=== PATIENT | male | born 1945 | race Caucasian/White ===

== ENCOUNTER 2025-04-12 01:45 | Inpatient (IN) | payer MEDICARE, SELFPAY ==
[2025-04-12] VITALS (26 sets, daily range): BP systolic 107–175; BP diastolic 70–103; PULSE 48–67; RESP 10–28; TEMP 35.6–37.1; O2SAT 95–100
--- NOTE | 2025-04-12 | ECHO_ITS ---
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 Staff Referring Physician: Nba Hodge Senior Lead Project Manager: Mar Moulton Attending Provider: Sameer Chaudhry MD Contrast/Agitated Saline Contrast/Ag. Saline: Definity Amount: 2.00 ml Administered By: Mar Moulton Existing IV Access: Yes IV Access Condition: patent with no signs of infiltration Summary 1. Overall poor quality echocardiogram. 2. Overall preserved biventricular systolic function. Left Ventricle The left ventricle is normal in size and systolic function. There are poor acoustic windows to fully assess for new wall motion abnormalities. Right Ventricle The right ventricle is normal in size and systolic function. Left Atria The left atrium is normal size. Right Atria The right atrium is normal size. Atrial Septum The atrial septum is not well visualized. Aortic Valve The aortic valve is sclerotic. There is no aortic stenosis. There is no aortic regurgitation. Pulmonic Valve The pulmonic valve is not visualized. There is mild pulmonic valve regurgitation. Mitral Valve There is no mitral stenosis. There is no mitral regurgitation. Tricuspid Valve The tricuspid valve is not well visualized. Pericardium/Pleural Pericardium is normal in appearance with no evidence for significant pericardial effusion. Inferior Vena Cava Inferior vena cava is not well visualized. Aorta The aortic root at the level of the sinus of Valsalva measures 3.6 cm in diameter. Left Ventricular Outflow Tract Name Value Normal LVOT 2D LVOT Diameter 2.2 cm LVOT Doppler LVOT Peak Velocity 82 cm/s LVOT Peak Gradient 2 mmHg LVOT Mean Gradient 1 mmHg LVOT VTI 18 cm LVOT VTI/AV VTI Ratio 0.6 LVOT Stroke Volume 69 ml LVOT CO 1.8 l/min LVOT CI 0.8 l/min/m2 Pulmonic Valve Name Value Normal PV Doppler PV Peak Velocity 85 cm/s PV Peak Gradient 3 mmHg Tricuspid Valve Name Value Normal TV Annular TDI TV Lateral Mai s' Velocity 9.4 cm/s >=9.5 Aortic Valve Name Value Normal AV Doppler AV Peak Velocity 151 cm/s AV Peak Gradient 6 mmHg AV Mean Gradient 4 mmHg AV VTI 32 cm AV Area (Cont Eq VTI) 2.1 cm2 >=3.0 AV Area (Cont Eq Rogers) 2.1 cm2 AV DI (Rogers) 0.54 AV Regurgitation 2D LVOT Area 3.8 cm2 Ventricles Name Value Normal LV Dimensions 2D/MM LVOT Diameter 2.2 cm LV Fractional Shortening/Ejection Fraction 2D/MM LV Diastolic Volume (4C MOD) 115 ml LV EF (4C MOD) 61 % LV Diastolic Length (4C) 9.0 cm LV Systolic Length (4C) 7.2 cm LV Stroke Volume (4C MOD) 71 ml Atria Name Value Normal LA Dimensions LA Volume (4C A-L) 41 ml RA Dimensions RA Systolic Major [place] Length (4C) 3.6 cm 2.1-2.7 RA Area (4C) 9.2 cm2 <=18.0 Report Signatures
[2025-04-12] MEDS: MORPHINE SULFATE (*CRX) 2 MG/ML INJ IV PUSH (02:05)
[2025-04-12] MEDS: ATORVASTATIN 40 MG TABLET 80 MG PO ×2 (02:06→20:39)
--- NOTE | 2025-04-12 02:06 | PC.NURSE ---
01:44 Patient arrival, STEMI team called, MD at bedside. 324mg aspirin given orally via EMS. 01:46 Patient placed in gown and EKG set up. 01:48 EKG completed with MD at bedside. 01:49 FELICIA Groin and right wrist shaved. Second IV placed in right AC. Monitor pads placed on chest. 01:51 5000 unit heparin given via IV. 180 mg Brilinta given orally. 01:55 80mg Lipitor given orally. 02:00 2mg Morphine given via IV for pain.
[2025-04-12 02:08] LABS: Hematocrit 48.7 % (42.0-52.0); Hemoglobin 16.1 g/dL (14.0-18.0); Immature Granulocyte Percent A 0.4 % (0-0.5); Lymphocytes Absolute Auto 2.47 K/mm3 (0.9-3.2); Mean Corpuscular HGB Conc 33.1 g/dl (32-36); Mean Corpuscular Hemoglobin 31.0 pg (26-34); Mean Corpuscular Volume 93.8 fl (80-100); Nucleated Red Blood Cells Absolute Auto 0.000 K/mm3 (0.0-0.012); Nucleated Red Blood Cells Perc 0.0 % (0.0-0.2); Platelet Count Result 167 k/mm3 (150-375); Red Blood Count 5.19 M/mm3 (4.6-6.20); White Blood Count 7.2 K/mm3 (4.5-10.0)
--- OUTSIDE RECORDS SUMMARY | 2025-04-12 02:09 | XMS_ITS | Continuity of Care Document ---
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 daily - Active Glucovance 2.5 mg-500 mg Tab take as directed - Active imipramine 25 mg Tab two p.o. daily - Acti ve fosinopril 20 mg Tab one p.o. daily - Acti ve Prilosec 20 mg Cap one p.o. daily - Active Vytorin 10-40 10 mg-40 mg Tab one p.o. daily - Active Wellbutrin SR 200 mg Tab 1 po q d - Active Nasonex 50 mcg/Actuation Snyder - Active Procedures Procedure Date Offic/outpt E&m Estab Mod-hi 2 09 Offic/outpt E&m Estab Mod-hi 4 09 Offic/outpt E&m Estab Mod-hi 4 09 Offic/outpt E&m Estab Mod-hi 4 09 Offic Cons New/estab Mod-hi 80 09 Noninvas Oximetry-o2 Sat; 1 De 09 Advance Directives Directive Yes / No Effective Date File Name Resuscitation Not Answered N/A N/A Life Support Not Answered N/A N/A Intubation Not Answered N/A N/A Antibiotics Not Answered N/A N/A IV Fluid Support Not Answered N/A N/A Tube Feed Not Answered N/A N/A Other Directive N/A N/A WARNING:The information contained in this section is historical and is provided for information only and does not constitute a legal document or any assurance that the information is still accurate. Please verify the information with the niño of the legal document before using it for clinical purposes. Encounters Encounter Description Practice Location Reason(s) For Visit Diagnoses Date Provider Providers Copied on Encounter Offic/outpt E&m Estab Mod-hi 2 [facility], [address], [id number] , [place] tel:[phone] [facility] Obstructive Sleep Apnea (chief complaint)Pe riodic Limb Movement Disorder (chief complaint) sleep apnea nec/nossleep related movemt dis 9 Horace Miller. [address] [place], [address], [place]. [phone] Referring Provider: Canelo OJEDA, [address], [place], [address]. 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 [address] [place], [address], [place]. [phone] Referring Provider: Canelo OJEDA, [address], [place], [address]. tel:[phone] Offic/outpt E&m Estab Mod-mo 4 [facility], [address], [id number] , [place] tel:[phone] [facility] Sleep problems (chief complaint) sleep apnea nec/nosrenal failure nos Amadeo- 1-200 9 Horace Miller. [address] [place], [address], [place]. tel:[phone] Referring Provider: Canelo OJEDA, [address], [place], [address]. tel:[phone] Offic/outpt E&m Estab Mod-hi 4 [facility], [address], [id number] , tel:[phone] [facility] Sleep problems (chief complaint) sleep apnea nec/nossleep related movemt disobesity nos Dec- 0-200 9 Horace Miller. [address] [place], [address], [place]. tel:[phone] Referring Provider: Canelo OJEDA, [address], [place], [address]. tel:[phone] Offic Cons New/estab Mod-hi 80 [facility], [address], [id number] , [place] tel:[phone] [facility] hypersomni w sleep apneaInadequate Sleep HygieneHypertension allergic rhinitis nos 2-200 9 Horace Miller. [address] [place], [address], [place]. [phone] Referring Provider: Canelo OJEDA, [address], [place], [address]. tel:[phone] Family History Family Member Type Diagnosis Age At Onset No Information Payers Payer name Insurance type Covered libertarian ID Authortashiaa hector(s) [facility] CI [id number] Social History Type Description Quantity Date Captured Comments Alcohol Use Details Unknown Caffeine Use Details Unknown Tobacco Use Status No Information Smoking Status No Information Sex Male Vital Signs Date / Time: Height Weight BMI Pulse Rate Blood Pressure Temperature Respiratory Rate Body Surface Area Head Circumference Head Circ. Percentile Wt./Tanvir. Percentile BMI percentile Pulse Ox Inhaled Ox 10:46 AM 96.600 kg (213.00 lbs) 72 /min 132/86 mm[Hg] 97.90 F 97 % Chief Complaint And Reason For Visit From encounter dated '09/07/2009 11:00'. Obstructive Sleep Apnea (chief complaint). Description: Mr. Menchaca continues to use CPAP nightly. He finds both the pressure and the mask comfortable. He keeps CPAP on throughout the duration of hismajor sleep episode. Recently he went on a 3-week vacation. During that time he did not use CPAP. He felt that he was more sleepy during the day when not using CPAP. Additionally he reported his sleep less well consolidated.He denies drowsy driving or difficulty maintaining vigilance to task. his [place] Sleepiness Scale today is scored at 8. Periodic Limb Movement Disorder (chief complaint). Description: He finds that his limb movements are now under better control. He uses Mirapex 0.25-mg on a p.r.n. basis. He finds he needs this only twice weekly. During those times he does use the Mirapex, he finds it successful.His typical bedtime is 10 p.m. Sleep latency is within 10-15 minutes. He wakens once or twice nightly to urinate. Sleep latency is within 5 minutes. He wakens daily between 8 a.m. and 8:30 a.m. Reason For Referral Reason For Referral No Information History Of Present Illness Encounter Date Complaint History Of Prese nt Illness No Information Functional Status Date Functional Assessmen t No Information Instructions Date Instruction Additional Infor mation No Information Assessments Type Assessment Date No Information Patient Care Teams Name Effective Dates (start - stop) Status Members No Information
--- OUTSIDE RECORDS SUMMARY | 2025-04-12 02:09 | XMS_ITS | Clinical Summary ---
Author Organization [facility] Address [address] [place] [address] Care Team Providers Care Validation Scientist Name Role Phone Franny Martinez MD Primary Care Provider + Allergies Active Allergy Reactions Criticality Noted Date Comments Iodinated Contrast Media Other (see comment) Prednisone Other (see comment) 05/11/2024 Prednisone & Diphenhydramine Other (see comment) 10/03/2023 Sulfa Antibiotics Hives,Itching,Other (see comment) High 06/15/2010 Medications acetaminophen (TYLENOL) 500 MG tablet Take 1 tablet (500 mg total) by mouth every 4 (four) hours as needed for Pain. Active meclizine (ANTIVERT) 25 MG tablet Take 1 tablet (25 mg total) by mouth daily as needed. Active Cholecalciferol (VITAMIN D) 50 MCG (2000 UT) Cap Take 2,000 Units by mouth daily. Active allopurinol (ZYLOPRIM) 100 MG tabletIndications: Idiopathic chronic gout without tophus, unspecified site Take 1 tablet (100 mg total) by mouth daily. 90 tablet 3 04/23/20 24 025 Active MULTIPLE VITAMIN OR Take by mouth. Activ e aspirin EC (ECOTRIN) 81 MG tablet Take 1 tablet (81 mg total) by mouth daily. Active JARDIANCE 25 MG tabletIndications: Type 2 diabetes mellitus with stage 4 chronic kidney disease, with long-term current use of insulin ([facility]/HCC HHS/HCC) Take 1 tablet (25 mg total) by mouth daily. 90 tablet 3 09/14/20 24 025 Active ONETOUCH ULTRA test stripIndications:T ype 2 diabetes mellitus with stage 4 chronic kidney disease, with long-term current use of insulin (CMS/HCC HHS/HCC) 1 strip by Other route 4 (four) times daily. 200 strip 5 10/23/19 25 Active glyBURIDE (DIABETA) 5 MG tabletIndications: Type 2 diabetes mellitus with stage 4 chronic kidney disease, with long-term current use of insulin (CMS/HCC HHS/HCC) TAKE 1 TABLET BY MOUTH TWICE DAILY BEFORE LUNCH AND DINNER 180 tablet 10/27/19 25 Active esomeprazole (NEXIUM) 20 MG capsuleIndications :Gastroesophageal reflux disease without esophagitis TAKE 1 CAPSULE(20 MG) BY MOUTH EVERY MORNING BEFORE BREAKFAST 90 capsule 1 11/24/19 25 Active lisinopril (PRINIVIL) 5 MG tablet Take 1 tablet (5 mg total) by mouth daily. 12/16/19 25 Active B-D ULTRAFINE III SHORT PEN 31G X 8 MM MiscIndications:Ty pe 2 diabetes mellitus with stage 4 chronic kidney disease, with long-term current use of insulin (CMS/HCC HHS/HCC) 4 [place] by Other route daily. 200 each 1 01/08/20 25 Active glucagon (GLUCAGON EMERGENCY) 1 MG injectionIndicatio ns:Type 2 diabetes mellitus with stage 4 chronic kidney disease, with long-term current use of insulin (CMS/HCC HHS/HCC) Use for hypoglycemia PRN 1 kit 01/08/20 25 Active Continuous Glucose [employer] (FREESTYLE ALEENA 14 DAY READER) DeviceIndications: Type 2 diabetes mellitus with stage 4 chronic kidney disease, with long-term current use of insulin (CMS/HCC HHS/HCC) 1 each by Does not apply route every 14 (fourteen) days. E11.9 on insulin 1 each 02/24/20 25 Active Continuous Glucose Sensor (FREESTYLE ALEENA 14 DAY SENSOR) MiscIndications:Ty pe 2 diabetes mellitus with stage 4 chronic kidney disease, with long-term current use of insulin (CMS/HCC HHS/HCC) 1 each by Does not apply route every 14 (fourteen) days. 6 each 3 02/24/20 25 Active insulin aspart (NOVOLOG FLEXPEN) 100 UNIT/ML injection (PEN)Indications:T ype 2 diabetes mellitus with stage 4 chronic kidney disease, with long-term current use of insulin (CMS/HCC HHS/HCC) 6 units before all meals. Maximum units per day: 18 units. 30 mL 02/25/20 25 Active insulin glargine (LANTUS SOLOSTAR) 100 UNIT/ML injection (PEN)Indications:T ype 2 diabetes mellitus with stage 4 chronic kidney disease, with long-term current use of insulin ([facility]) Inject 10 Units into skin nightly at bedtime 15 mL 1 02/25/20 25 Active atorvastatin (LIPITOR) 40 MG tabletIndications: Mixed hyperlipidemia Take 1 tablet (40 mg total) by mouth nightly. 90 tablet 3 04/07/20 24 025 donepezil (ARICEPT) 10 MG TabIndications:Alz heimer's dementia without behavioral disturbance, psychotic disturbance, mood disturbance, or anxiety, unspecified dementia severity, unspecified timing of dementia onset ([facility]) Take 1 tablet (10 mg total) by mouth nightly at bedtime. 90 tablet 04/07/20 24 025 hydrALAZINE (APRESOLINE) 10 MG tabletIndications: Essential hypertension Take 1 tablet (10 mg total) by mouth 4 (four) times daily. 360 tablet 3 04/07/20 24 025 memantine (NAMENDA) 10 MG tabletIndications: Alzheimer's dementia without behavioral disturbance, psychotic disturbance, mood disturbance, or anxiety, unspecified dementia severity, unspecified timing of dementia onset ([facility]) Take 1 tablet (10 mg total) by mouth 2 (two) times daily. 180 tablet 3 04/07/20 24 025 metoprolol succinate ER (TOPROL-XL) 25 MG 24 hr tabletIndications: Essential hypertension Take 0.5 tablets (12.5 mg total) by mouth daily. 45 tablet 3 04/07/20 24 025 potassium citrate CR (UROCIT-K) 10 MEQ (1080 MG) tabletIndications: Renal stone Take 1 tablet (10 mEq total) by mouth 2 (two) times daily. 180 tablet 3 04/07/20 24 025 Active Problems Problem Noted Date Diagnosed Date Subclinical hypothyroidism 04/23/2024 Overview (07/09/2024): TSH elevated in April 2024 but T4 remains normal. 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 RBBB 04/15/2024 Overview (04/15/2024): Seen on baseline EKG in 2019. Essential hypertension 04/07/2024 Overview (01/07/2025): Takes metoprolol, hydralazine. Dr. Castillo started lisinopril. Assessment & Plan (01/07/2025 11:23 AM CDT): Chronic. Controlled. Continue metoprolol, hydralazine, lisinopril. Assessment & Plan (07/09/2024 11:17 AM CDT): Controlled. Stable. Continue metoprolol and hydralazine. Assessment & Plan (04/23/2024 1:21 PM CDT): Controlled today. Continue metoprolol and hydralazine. Assessment & Plan (04/07/2024 12:39 PM CDT): Controlled. Use of hydralazine suggests underlying cardiomyopathy but await records to confirm this history. Ordered CMP. Vascular dementia 04/07/2024 Overview (01/07/2025): Takes memantine and donepezil. POA paperwork has now been completed in [place]. Diagnosed by neurology after scans. MRI showed old ischemic strokes in left frontal lobe and bilateral cerebellar lobes. Takes plavix and asa. His is now helping him with his medications to ensure he is taking them appropriately. Assessment & Plan (01/07/2025 11:24 AM CDT): POA activated now. Continue memantine and donepezil. His is managing his medications as it stands now. Assessment & Plan (10/09/2024 10:48 AM RN RECOVERY): Consider activating POA in the future. Continue memantine and donepezil. Assessment & Plan (07/09/2024 11:17 AM CDT): Stable. No changes to memory since he was last seen. Continue memantine and donepezil. Assessment & Plan (04/23/2024 1:22 PM CDT): Will monitor for progression. Will continue memantine and donepezil for now. Question the benefit of these given vascular etiology for his dementia. Assessment & Plan (04/07/2024 2:19 PM CDT): Await neurology records. Will continue memantine and donepezil. Possibly reflects vascular dementia. PAD (peripheral artery disease) 04/07/2024 Overview (04/20/2024): Saw Dr. Menchaca with comprehensive integrated care. Records indicate Tibioperoneal/runoff atherectomy + [employer]ILDC[employer] ATTENDANT with excellent angiographic results on 01/17/23. Assessment & Plan (04/07/2024 12:38 PM CDT): Await records. Stage 4 chronic kidney disease ([facility]/HCC [facility]/HCC) 06/03/2023 Overview (10/09/2024): He has now seen nephrology, Dr. Castillo. No major adjustments were done. Assessment & Plan (10/09/2024 10:47 AM RN RECOVERY): Will check BMP to confirm stability. He is seeing nephrology again in November. Assessment & Plan (07/09/2024 11:15 AM CDT): Recommend nephrology referral. New referral entered. Assessment & Plan (04/07/2024 12:52 PM CDT): Await BMP to confirm renal function. Nephrology referral. Chronic gout 05/31/2023 Overview (04/07/2024): Takes allopurinol 200 mg daily. Pt has not had a flare in several years. Doesn't recall where it affected him. Assessment & Plan (04/23/2024 1:21 PM CDT): Uric acid is very low. Will reduce allopurinol to 100 mg daily and monitor for recurrence of symptoms. Assessment & Plan (04/07/2024 12:39 PM CDT): Will check uric acid levels to determine whether dose is adequate or whether it can be reduced. Continue allopurinol for now. Gastroesophageal reflux disease 05/31/2023 Overview (04/07/2024): Takes nexium. Assessment & Plan (10/09/2024 10:47 AM RN RECOVERY): Chronic. Symptoms well-controlled. Continue Nexium. Mixed hyperlipidemia 07/05/2021 Overview (04/07/2024): Takes atorvastatin 40 mg nightly. Assessment & Plan (10/09/2024 10:47 AM RN RECOVERY): CMP and lipid panel were updated in March. Will plan to repeat this again next visit. Assessment & Plan (04/07/2024 12:39 PM CDT): Ordered CMP and lipid panel to evaluate efficacy. Continue atorvastatin. 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 They felt it was secondary polycythemia due to CKD and possibly FRANCIS. Assessment & Plan (04/07/2024 2:19 PM CDT): Will refer to hematology and acquire the records of his history of polycythemia. He denies any polycythemia vera. Obstructive sleep apnea syndrome 04/08/2020 Overview (10/09/2024): Not using the CPAP Type 2 diabetes mellitus wit h chronic kidney disease, with long-term current use of insulin ([facility]) 04/08/2020 Overview (02/11/2025): Takes jardiance, glyburide. Takes Lantus 20 units daily. Reduced at last visit due to AM hypoglycemia. Improved but still down to 70s fasting. Taking humalog 6 units with dinner meal. Post prandial blood sugars 170s. Does not take metformin due to CKD IV. They discontinued and got rid of aleena machine because it was constantly reporting elevated readings. Assessment & Plan (02/11/2025 10:22 AM CDT): A1c controlled but persistent hypoglycemia in AM. Reduce lantus to 10 units and adjust humalog to 4 units with meals only. Request she drop off blood sugar log in 2 weeks for further adjustment. May benefit from aleena in the future. Assessment & Plan (01/27/2025 2:28 PM CDT): A1c now controlled 7.7%. Concerning hypoglycemia in the a.m. and hyperglycemia postprandial. Recommend reducing Lantus to 20 units daily and starting predinner meal 6 units of NovoLog. Request another 2-week follow-up at which time we may extend mealtime insulin to lunch meal as well depending on his response. We also may reinitiate aleena system since he is in better shape now to monitor blood sugars closely. Assessment & Plan (01/07/2025 11:24 AM CDT): A1c 8.1%. Improved from 13%. Not quite yet at goal. Will adjust Lantus since he is having a.m. hypoglycemia. Reduce Lantus to 30 units once daily instead of 20 units twice daily. Next visit will initiate Humalog 10 units with meals or depending on blood sugars which she will provide at a 2-week follow-up visit. Sent in Humalog so that she can have it ready at her visit. Request Premeal blood sugars at that time. Also sent optometry referral. Foot exam today. Provided emergency glucagon kit. Assessment & Plan (10/09/2024 10:47 AM RN RECOVERY): A1c has been inaccurate due to his CKD and polycythemia. Will need to make adjustments based on blood sugars themselves. Increase Lantus to 20 units daily. Request an update if he has any low blood sugars or if he remains persistent elevated. We agreed that we would not be overly aggressive with his insulin regimen due to age and comorbidities. Assessment & Plan (07/09/2024 11:17 AM CDT): Request updated blood sugar log for the next week and will make arrangements for aleena system. Unfortunately his A1c is not accurate due to his polycythemia and adjustments need to be made based off blood sugar readings. Assessment & Plan (04/23/2024 1:21 PM CDT): A1c is very controlled. Suspect that his polycythemia is affecting his numbers. We will need to monitor his blood sugars more closely due to the inaccuracy of his A1c at this time. He is running low in the morning. Recommend he take his glyburide with his lunch and dinner instead of taking it while fasting which is probably contributing to lower blood sugars. His daytime glucose suggest that his A1c is inaccurate and he may need mealtime insulin. Will consider aleena use in the future. He will follow-up in June as scheduled. Assessment & Plan (04/07/2024 12:51 PM CDT): Suspect not controlled. Await A1c. Continue Jardiance and glyburide. Recommend reducing Lantus to 10 units daily and having his assist with management so that he is consistent with dosing. She will start to help him with tracking blood sugars and return in 2 weeks to review these together. Encounters Date Type Department Care Team Description 02/23/2025 Scan [facility] INFO SRVCS Scanned, Doc Med Group 02/23/2025 Telephone [facility] Family Medicine - [place] [address] [place] [address] Franny Martinez MD Blood Sugar Reporting 02/11/2025 9:50 AM CDT Office Visit [address] [place] [address] Franny Martinez MD Diabetes (Patient presents for a 2 week follow up on diabetes) 02/11/2025 Scan HEALTH INFO SRVCS Scanned, Doc Med Group 02/11/2025 Travel 01/27/2025 11:10 AM CDT Office Visit [address] [place] [address] Franny Martinez MD Diabetes (2 week follow up); ER F/U ([place], [place]) 01/16/2025 ; pneumonia, covid-19) 01/27/2025 Travel from Last 3 Months Immunizations Immunization Administration Dates Next Due Fluzone High Dose (IIV, triv alent, 0.5mL) 07/01/2024 Influenza (Generic) 04/23/2019, 8,08/23/2017,2015,07/24/2015,07/27/2013,12/16/2012,1 09/24/2006 Influenza Adult (Generic) 06/17/2020 Pneumococcal (Pneumovax 23) 12/16/2012 Family History Medical History Relation Comments CHF Father Colon Cancer Mother Relation Status Comments Father Mother Son Alive Social History Tobacco Use Types Packs/Day Years Used Date Smoking Tobacco: Never Passive Smoke Exposure: Never Smokeless Tobacco: Never Tobacco Cessation:Counseling Given: No Alcohol Use Standard Drinks/Week Comments Not Currently 0 (1 standard drink = 0.6 oz pur e alcohol) PHQ-2 Answer Date Recorded Patient Health Questionnaire-2 Score 0 10/09/2024 Sex and Gender Information Value Date Recorded Sex Assigned at Male 02/11/2025 9:30 AM CDT Legal Sex Male 1:32 PM CDT Gender Identity Male 02/11/2025 9:30 AM CDT Sexual Orientation Straight 02/11/2025 9: 30 AM CDT Last Filed Vital Signs Vital Sign Reading Time Taken Comments Blood Pressure 122/72 02/11/2025 9:30 AM CDT Pulse 50 02/11/2025 9:30 AM CDT Temperature 36.7 C (98 F) 02/11/2025 9:30 AM CDT Respiratory Rate 16 02/11/2025 9:30 AM CDT Oxygen Saturation 99% 02/11/2025 9:30 AM CDT Inhaled Oxygen Concentration - - Weight 85.7 kg (189 lb) 02/11/2025 9:30 AM CDT Height 182.9 cm (6') 02/11/2025 9:30 AM CDT Body Mass Index 25.63 02/11/2025 9:30 AM CDT Plan of Treatment Upcoming Encounters Date Type Department Care Team (Late st Contact Info) Description 04/12/2025 9:50 AM CDT Office Visit [facility] Medical Group Family Medicine - [place] [address] [place] [phone] Franny Martinez MD [address] [place], [place] [phone] Health Maintenance Due Date Last Done Comments ASCVD Statin 1945 Kidney Health Evaluation 1945 Diabetes: Retinopathy Eye Exam 1963 Hepatitis C 1963 DTaP, Tdap and Td Vaccines (1 - Tdap) 1964 Zoster Vaccines (1 of 2) 1995 Annual Medicare Wellness Visit 2010 Pneumococcal Vaccine: 50+ Years (2 of 2 - PCV) 12/16/2013 12/16/2012 RSV Immunization or 60+ Years (1 - 1-dose 75+ series) 2020 COVID-19 Vaccine ( - season) 2024 ASCVD LDL 04/07/2025 04/07/2024 Lipid Panel 04/07/2025 04/07/2024 Hemoglobin A1C 07/30/2025 01/27/2025, 12/22, 10/09/2024, Additional history exists PHQ-2 (Physician [place]) Completed 10/09/2024 Meningococcal B Vaccine Aged Out No l onger eligible based on patient's age to complete this topic Meningococcal Vaccine Aged Out No sae andrade eligible based on patient's age to complete this topic RSV Immunizations Under 20 Months Aged Out No longer eligible based on patient's age to complete this topic Procedures Procedure Name Priority Date/Time Associated Diagnosis Comments COLLECT.CAPILLARY (FNGR,HEEL,EAR) Routine 01/27/2025 12:07 PM CDT Type 2 diabetes mellitus with stage 4 chronic kidney disease, with long-term current use of insulin ([facility]) HEMOGLOBIN, GLYCOSYLATED Routine 01/27/2025 Type 2 diabetes mellitus with stage 4 chronic kidney disease, with long-term current use of insulin ([facility]) LIPID PANEL Routine 04/07/2024 10:37 AM CDT Mixed hyperlipidemia from Last 3 Months or Most Recently Relevant to Health Maintenance Results * A1C (BACK OFFICE) (01/27/2025) HGB A1C 7.7 % [address] [place] FINGER,LEFT 01/27/2025 us Franny Martinez MD LABORATORY Final Re sult [id number] [facility] [address] [place] [address], * (ABNORMAL) LIPID PANEL (04/07/2024 10:37 AM CDT) CHOLESTEROL 144 <200 MG/DL 04/07/2024 4:11 PM CDT [facility] TRIG[facility] 132 <150 MG/DL 04/07/2024 4:11 PM CDT [facility] [place] HDL 38(L) >40 MG/DL 04/07/2024 4:11 PM CDT [facility] [place] LDL-C 80 <100 MG/DL 04/07/2024 4:11 PM CDT [facility] [place] VLDL CALCULATION 26 5 - 28 MG/DL 04/07/2024 4:11 PM CDT [facility] CHOL/HDL RATIO 3.8 0.0 - 4.0 04/07/2024 4:11 PM CDT [facility] [place] LDL/HDL 2.1 0.41 - 2.13 04/07/2024 4:11 PM CDT [facility] [place], [place] NON HDL CHOLESTEROL 106 <140 MG/DL 04/07/2024 4:11 PM CDT [facility] [place] 04/07/2024 10:3 7 AM CDT us Franny Martinez MD LABORATORY Final Re sult [facility] [address] [place] [address], [place] [phone] from Last 3 Months or Most Recently Relevant to Health Maintenance Insurance MEDICARE [facility] Care Teams Validation Scientist Relationship Specialty Start Date End Date Franny Martinez MD [address] [place] [id number] PCP - General FAMILY PRACTICE 04/07/24
--- OUTSIDE RECORDS SUMMARY | 2025-04-12 02:09 | XMS_ITS | Encounter Summary ---
Author Organization [facility] Address [address] [place] [address] Care Team Providers Care Banquet Bartender Name Role Phone Franny Martinez MD Primary Care Provider + Encounter Details Date Type Department Care Team (Late Contact Info) Description 07/20/2024 Jumiot Message Enc [facility] [address] [place] [phone] Franny Martinez MD [address] [place] [phone] Blood sugars Social History Tobacco Use Types Packs/Day Years Used Date Smoking Tobacco: Never Passive Smoke Exposure: Never Smokeless Tobacco: Never Alcohol Use Standard Drinks/Week Comments Not Currently 0 (1 standard drink = 0.6 oz pur e alcohol) PHQ-2 Answer Date Recorded Patient Health Questionnaire-2 Score 0 04/07/2024 Sex and Gender Information Value Date Recorded Sex Assigned at Male 02/11/2025 9:30 AM CDT Legal Sex Male 1:32 PM CDT Gender Identity Male 02/11/2025 9:30 AM CDT Sexual Orientation Straight 02/11/2025 9: 30 AM CDT documented as of this encounter Plan of Treatment Upcoming Encounters Date Type Department Care Team (Late Contact Info) Description 04/12/2025 9:50 AM CDT Office Visit [facility] [address] [place] [phone] Franny Martinez MD [address] [place] [address] documented as of this encounter Visit Diagnoses Not on filedocumented in this encounter Care Teams Banquet Bartender Relationship Specialty Start Date End Date Franny Martinez MD [address] [place] [address] PCP - General FAMILY PRACTICE 04/07/24 documented as of this encounter
--- OUTSIDE RECORDS SUMMARY | 2025-04-12 02:09 | XMS_ITS | Patient Health Record ---
Author Organization [facility], Address [address] [place] [address] Care Team Providers Care Run Lead Name Role Phone Shadi PONCE, Mai Ledbetter Primary Care Provider Unav ailable Himanshu Hoff Unavailable [phone] Reason For Referral No Information Medications Medication SIG (Take, Route, Frequency, Duration) Notes Start Date End Date Status atorvastatin 09/25/2013 Active TRAMADOL 09/25/2013 Active Potassium 09/25/2013 Active Nifedical XL (nifedipine) 09/25/2013 Active Allopurinol 100 MG Oral 09/25/2013 Active Atenolol 25 MG Oral 09/25/2013 Acti ve glyBURIDE 5 MG Oral 09/25/2013 Acti ve Problems Problem Type SNOMED Code ICD Code Onset Dates Problem Status W/U Status Risk Notes Problem Sensorineural hearing loss, bilateral (148808547) 389.18-Hearing loss sensorineural bilateral (389.18) 09/25/19 14 Active confirmed Problem Dysfunction of eustachian tube (53822954) 381.81-Eustachian Tube Dysfunction (381.81) 10/05/19 14 Active confirmed Problem Acute infection of pinna (22179454) 380.11-Otitis Externa (380.11) 10/05/19 14 Active confirmed Plan Of Treatment No Information Insurance Providers Payer Name Payer Address Payer Phone Subscriber Number Group Number Insured Name Patient Relationship to Insured Coverage Start Date Coverage End Date Medicare Part B [employer] [address] [place] [phone] [id number] Canelo Menchaca Self - patient is the insured [facility] Claims Division [address] [place] [address] [phone] [id number] Canelo Menchaca Self - patient is the insured Medical (General) History Surgical History Surgery Date(Month/Year) Tonsillectomy
--- OUTSIDE RECORDS SUMMARY | 2025-04-12 02:10 | XMS_ITS | Clinical Summary ---
Author Organization [facility] [address] Address [address] [place] [address] Care Team Providers Care Associate Chemist Name Role Phone Provider, None Primary Care Provider Emmanuel Torres MD Unavailable [phone] Allergies Active Allergy Reactions Criticality Noted Date Comments Iodinated Contrast Media Other (see Comments) 0 10/05/2021 Prednisone Other (see Comments) 05/11/2024 Sulfa Antibiotics Hives,Itching,Other (see Comments) High 06/15/2010 Medications allopurinol (ZYLOPRIM) 100 MG Tablet Take 100 mg by mouth daily. Active glyBURIDE (DIABETA) 5 MG Tablet Take 5 mg by mouth 2 times daily. Active hydrALAZINE 10 MG Tablet Take 20 mg by mouth 2 times daily. Active metoprolol Succinate (TOPROL-XL) 25 MG TABLET SR 24 HR Take 12.5 mg by mouth daily. Active potassium citrate (UROCIT K) 10 MEQ (1080 MG) Tablet Controlled Release Take 10 mEq by mouth 2 times daily. Active meclizine (ANTIVERT) 25 MG Tablet Take 25 mg by mouth daily as needed. Active acetaminophen (TYLENOL) 500 MG Tablet Take 500 mg by mouth every 4 hours as needed. Active aspirin EC 81 MG Tablet Delayed Response Take 81 mg by mouth daily. Active Multiple Vitamin (MULTIVITAMIN PO) Take by mouth. Activ e Lactobacillus (PROBIOTIC ACIDOPHILUS PO) Take by mouth. Active memantine (NAMENDA) 10 MG Tablet 10/25/19 25 Active esomeprazole (NexIUM) 20 MG CAPSULE DELAYED RELEASE Take 20 mg by mouth. 11/24/19 25 Active Lantus SoloStar 100 UNIT/ML Solution Pen-injector Inject 20 Units into skin nightly at bedtime 11/09/19 25 Active Continuous Glucose Track Sweeper (FreeStyle Elvin 14 Day [place]) Device 1 Each by Does not apply route. 02/24/20 25 Active Continuous Glucose Sensor (FreeStyle Elvin 14 Day Sensor) Misc 1 Each by Does not apply route. 02/24/20 25 Active Glucagon, rDNA, (Glucagon Emergency) 1 MG Kit Use for hypoglycemia PRN 01/08/20 25 Active OneTouch Ultra Strip USE TO CHECK BLOOD SUGAR FOUR TIMES DAILY Active lisinopril (PRINIVIL, ZESTRIL) 5 MG Tablet Take 5 mg by mouth daily. Active atorvastatin (LIPITOR) 40 MG Tablet 06/17/20 19 Active NovoLOG FlexPen 100 UNIT/ML Solution Pen-injector 6 units before all meals. Maximum units per day: 18 units. 02/25/20 25 Active BD Pen Needle Short Ultrafine 31G X 8 MM Misc USE 4 NEEDLES DAILY Active atorvastatin (LIPITOR) 20 MG Tablet Take 20 mg by mouth 2 times daily. 025 Discontinu ed(Med List Clean Up) donepezil (ARICEPT) 10 MG Tablet Take 10 mg by mouth. 04/07/20 24 025 Jardiance 25 MG Tablet Take 25 mg by mouth daily. 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 Polycythemia, secondary (Primary Dx) 03/18/2025 Travel from Last 3 Months Immunizations Immunization Administration Dates Next Due Influenza, high-dose, trivalent, PF 07/01/2024 Social History Tobacco Use Types Packs/Day Years Used Date Smoking Tobacco: Never Smokeless Tobacco: Never Tobacco Cessation:Counseling Given: Not Answered Alcohol Use Standard Drinks/Week Comments Never 0 (1 standard drink = 0.6 oz pur e alcohol) Sex and Gender Information Value Date Recorded Sex Assigned at Not on file 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 Gender Identity Not on file Sexual Orientation Not on file Last Filed Vital Signs Vital Sign Reading Time Taken Comments Blood Pressure 130/78 03/18/2025 10:33 AM CDT Pulse 55 03/18/2025 10:33 AM CDT Temperature 36.6 C (97.9 F) 03/18/2025 10:33 AM CDT Respiratory Rate 16 03/18/2025 10:33 AM CDT Oxygen Saturation 97% 03/18/2025 10:33 AM CDT Inhaled Oxygen Concentration - - Weight 84.6 kg (186 lb 9.6 oz) 03/18/2025 10:33 AM CDT Height 180.3 cm (5' 11) 03/18/2025 10:33 AM CDT Body Mass Index 26.03 03/18/2025 10:33 AM CDT Plan of Treatment Upcoming Encounters Date Type Department Care Team (Late st Contact Info) Description 09/09/2025 10:30 AM 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 Office Visit [facility] [address] [phone] Emmanuel Holley MD [address] [place] [phone] Health Maintenance Due Date Last Done Comments Hepatitis C Virus (HCV) Screening 1945 TdaP Immunization 1945 Zoster Immunization (1 of 2) 1995 Respiratory Syncytial Virus (RSV) Immunization (Adult) (1 - 1-dose 75+ series) 2020 SARS-COV-2 Immunization ( - 2023- season) 2024 Influenza Immunization (#1) 2025 10/05/2024, 06/17/2020, 04/23/2019, Additional history exists Pneumococcal Immunization (50+ years) Completed 12/16/2012, 12/16/2012 Hepatitis B Immunization Aged Out No longer eligible based on patient's age to complete this topic Human Papillomavirus (HPV) Immunization Aged Out No longer eligible based on patient's age to complete this topic Meningococcal Immunization (ACWY) Aged Out No longer eligible based on patient's age to complete this topic Rotavirus Immunization Aged Out No lo nger eligible based on patient's age to complete this topic Procedures Procedure Name Priority Date/Time Associated Diagnosis Comments CBC WITH AUTO DIFF OH Routine 03/18/2025 2:06 PM CDT from Last 3 Months Results * (ABNORMAL) CBC WITH AUTO DIFF OH (03/18/2025 2:06 PM CDT) WBC 6.5 4.0 - 10.0 10*3/uL [facility] HGB 16.9 13.7 - 17.5 g/dL [facility] HCT 49.9 40.1 - 51.0 % [facility] PLT 173 163 - 369 10*3/uL [facility] MPV 11.6 9.4 - 12.4 fL [facility] RBC 5.32 4.63 - 6.08 10*6/uL [facility] MCV 94 79 - 95 fL [facility] MCH 31.8 25.6 - 32.2 pg [facility] MCHC 33.9 32.2 - 36.5 g/dL [facility] RDW 17.4(H) 11.6 - 14.4 % [facility] Neutrophils % 67.7(H) 36.0 - 66.0 % [facility] Lymphocytes % 20.1 19.0 - 40.0 % [facility] Monocytes % 10.0 4.1 - 12.1 % [facility] Eosinophils % 1.1 0.0 - 3.5 % [facility] Basophils % 0.5 0.0 - 1.0 % [facility] Absolute Neutrophils 4.4 1.4 - 6.6 10*3/uL [facility] Absolute Lymphocytes 1.3 0.8 - 4.0 10*3/uL [facility] Absolute Monocytes 0.7 0.2 - 1.2 10*3/uL [facility] Absolute Eosinophils 0.1 0.0 - 0.4 10*3/uL [facility] Absolute Basophils 0.0 0.0 - 0.1 10*3/uL [facility] 03/18/2025 2:06 PM CDT us Rabia Nichols APRN, HOME ENERGY RATER LAB SEND OUTS Final Result [facility] [place] [address], [place] [phone] from Last [address] [facility] MEDICARE A[employer] Care Teams Associate Chemist Relationship Specialty Start Date End Date Provider, None [place] PCP - General 11/11/21 Emmanuel Holley MD [address] [place] [address] Consulting Physician Oncology 12/14/24
--- OUTSIDE RECORDS SUMMARY | 2025-04-12 02:10 | XMS_ITS | Patient Health Record ---
Author Organization [facility] Address [address] [place] [address] Care Team Providers Care Full Stack Net Developer Name Role Phone Mai Hsu Primary Care Provider Unavail able Sara Langford Unavailable [phone] Self Referral, Self Referral Unavailable Rhoda vailable Allergies Allergen (clinical drug ingredient) Drug/Non Drug Allergy documented on EMR Reaction Allergy Type Onset Date Status contrast dye (uncoded) Unknown Allergy Active Substance with sulfonamide structure and antibacterial mechanism of action (substance) Sulfa Antibiotics rash Drug Allergy Active Reason For Referral No Information Medications Medication SIG (Take, Route, Frequency, Duration) Notes Start Date End Date Status Potassium Citrate ER 10 MEQ (1080 MG) 1 tablet with meals Orally 2 times daily Active Donepezil HCl 5 MG 1 tablet at bedtime Orally Once a day Active Jardiance 25 MG 1 tablet Orally Once a day Active NexIUM 20 MG 1 capsule Orally Onc e a day Active Clopidogrel Bisulfate 75 MG 1 tablet Orally Once a day for 30 day(s) 12/07/2022 Active Cranberry 300 MG as directed Orally Not-Taking Multivitamin - 1 tablet Orally Once a day Active Allopurinol 100 MG 1 tablet Orally two times daily Active Fiber Adult Gummies 2 GM as directed Orally Active Atorvastatin Calcium 20 MG 1 tablet Orally twice daily Active Probiotic 250 MG as directed Orally Active glyBURIDE 5 MG 1 tablet with breakf ast or the first main meal of the day Orally Once a day Active Aspirin 81 MG 1 tablet Orally Once a day Active hydrALAZINE HCl 25 MG 1 tablet with food Orally 2 times daily Active Lantus 100 UNIT/ML as directed Subcutan eous 30/40 units Active Metoprolol Succinate ER 25 MG 1/2 tab Orally twice daily Active Social History Tobacco Use: Social History Observation Description Date Details (start date - stop date) Never Smoker NA - NA Tobacco Use/Smoking Question Answer Notes Are you a nonsmoker Alcohol Screen Question Answer Notes Did you have a drink containing alcohol in the p ast year? No Points 0 Interpretation Negative Problems Problem Type SNOMED Code ICD Code Onset Dates Problem Status W/U Status Risk Notes Problem 72494098 Type 2 diabetes mellitus with other specified complication (E11.69) Active confirmed Problem 524509194 Atherosclerosis of [place] arteries of extremities with rest pain, right leg (I70.221) Active confirmed Problem 926230942 residential (current) use of insulin (Z79.4) Active confirmed Problem 672062242 Peripheral arterial disease (I73.9) Active confirmed Problem Peripheral artery disease (793415502) Peripheral artery disease (I73.9) Active confirmed Problem Hyperlipidaemia (17729589) HLD (hyperlipidemia) (E78.5) Active confirmed Problem 033447862 PAOD (peripheral arterial occlusive disease) (I77.9) Active confirmed Problem Benign hypertension (56428840) Benign hypertension (I10) Active confirmed Problem Stenosis of right carotid artery (929925907052891) Stenosis of right carotid artery (I65.21) Active confirmed Problem 76751775620258387 Rest pain of b oth lower extremities due to atherosclerosis (I70.223) Active confirmed Plan Of Treatment Pending Test Test Name Order Date BMP, CBC, PT-INR 08/06/2022 BMP, CBC, PT-INR 11/08/2022 BMP, CBC, PT-INR 11/15/2022 Insurance Providers Payer Name Payer Address Payer Phone Subscriber Number Group Number Insured Name Patient Relationship to Insured Coverage Start Date Coverage End Date MEDICARE OF [place] [address] [place] [phone] [id number] Canelo Menchaca Self - patient is the insured [facility] [address] [place] [address] [phone] [id number] Canelo Menchaca Self - patient is the insured Medical (General) History Medical History History ICD Code gout cholesterol blood sugar high blood pressure diabetesheart kidney memory acid reflux minor aches vertigo Surgical History Surgery Date(Month/Year) knee scope hernia repair
--- NOTE | 2025-04-12 02:27 | P.HP_ITS ---
H&P: HPI History of Present Illness Date/Time: 04/12/25 02:27 Chief Complaint: Chest pain Narrative: 79-year-old male with hypertension, type 2 diabetes mellitus, CKD, dyslipidemia, gout, history of stroke, ? Vascular dementia Patient presented to [facility] Emergency Room on 04/12/2025 with complaints of chest pain. EMS EKG on my personal interpretation showed sinus bradycardia, inferior ST elevation with reciprocal ST depression. Cardiac catheterization lab was activated for primary PCI. At the time of evaluation in the labor delivery rn, patient denied ongoing chest pain. As per staff, patient had reported of and on chest pain through the day which got worse in the evening. Due to dementia, patient is unable to provide detailed medical information. Review of Systems Review of Systems: As per HPI, other review of system difficult to obtain due to patient's dementia. At the time of evaluation the labor delivery rn can not, he denied ongoing chest pain. Denies shortness of breath, palpitation, dizziness or syncope. No fever or chills. [facility] Social History Social History Smoking status: Never smoker Do You Feel Safe in your Home?: Yes Lack of Transportation: No Lack of Food: Never True Current Housing: I Have Housing Concerned About Future Housing: No Difficulty Paying Gas/Electric Bills: No Difficulty Paying for Meds: No Currently Unemployed: No Education: Master's Degree or Higher Difficulty w/ Childcare or Family Care: No Living arrangements: with family Gender identity (if verbalized by the patient): Male Meds Home Medications and Allergies Home Medications ?Medication ?Instructions ?Recorded ?Confirmed ?Type acetaminophen 500 mg tablet 1,000 mg PO Q6H PRN 08/17/24 12/21/24 History (Tylenol Extra Strength) allopurinol 100 mg tablet 100 mg PO DAILY 08/17/24 12/21/24 History aspirin 81 mg chewable tablet 81 mg PO DAILY 08/17/24 12/21/24 History atorvastatin 20 mg tablet 20 mg PO BID 08/17/24 12/21/24 History donepezil 10 mg tablet 10 mg PO QHS 08/17/24 12/21/24 History empagliflozin 25 mg tablet 25 mg PO DAILY 08/17/24 12/21/24 History (Jardiance) glyburide 5 mg tablet 5 mg PO BID 08/17/24 12/21/24 History hydralazine 10 mg tablet 20 mg PO BID 08/17/24 12/21/24 History insulin glargine 100 unit/mL (3 See Rx Instructions subcut DAILY 08/17/24 12/21/24 History mL) subcutaneous pen (Lantus Solostar U-100 Insulin) lactobacillus combination no.9 4 4,000 mmu cells PO DAILY 08/17/24 12/21/24 History billion cell capsule (Adult 50 Plus Probiotic) metoprolol succinate 25 mg 12.5 mg PO DAILY 08/17/24 12/21/24 History tablet,extended release 24 hr multivitamin 1 tablet PO DAILY 08/17/24 12/21/24 History potassium citrate 10 mEq (1,080 1,080 mg PO BID 08/17/24 12/21/24 History mg) tablet,extended release lisinopril 5 mg tablet 5 mg PO DAILY #30 tabs 12/15/24 12/15/24 Rx Allergies Allergy/AdvReac Type Severity Reaction Status Date / Time No Known Allergies Allergy Unverified 08/17/24 10:48 Vital Signs Vital Signs - 24 hr 04/12/25 01:49 04/12/25 01:50 04/12/25 01:50 Pulse Rate 49 L 58 L 58 L Respiratory Rate 23 H 19 18 Blood Pressure 167/103 H 167/103 H Pulse Oximetry 97 98 95 Oxygen Delivery Room Air 04/12/25 02:00 04/12/25 02:02 04/12/25 02:12 Pulse Rate 54 L 52 L 61 Respiratory Rate 28 H 27 H 20 Blood Pressure 175/85 H 170/87 H Pulse Oximetry 99 99 98 Oxygen Delivery 04/12/25 02:12 04/12/25 02:16 04/12/25 02:22 Pulse Rate 55 L 55 L 58 L Respiratory Rate 21 H 17 18 Blood Pressure 170/87 H 163/71 H Pulse Oximetry 100 99 98 Oxygen Delivery Exam Narrative: PHYSICAL EXAMINATION: GENERAL: Elderly male, alert, no acute distress MENTAL STATUS: affect appropriate to mood, no agitation EYES: Extraocular movements intact, no pallor EARS: External ears appear normal, hearing grossly normal NOSE: Normal and patent, no discharge MOUTH: Mucous membranes moist, tongue normal NECK: Supple, no JVD CHEST: Good respiratory effort, clear to auscultation HEART: Bradycardia, distant heart sounds ABDOMEN: Soft, nontender NEUROLOGICAL: Alert, speech coherent MUSCULOSKELETAL: No major deformity, no amputation EXTREMITIES: No pedal edema, no clubbing, no cyanosis SKIN: no rash on the exposed area, no cyanosis PSYCHIATRIC: Flat affect, no agitation H&P: Results Labs Labs: Short CBC 04/12/25 Range/Units 02:01 WBC 7.2 (4.5-10.0) K/mm3 Hgb 16.1 (14.0-18.0) g/dL Hct 48.7 (42.0-52.0) % Plt Count 167 (150-375) k/mm3 Assessment and Plan Assessment and plan (1) Essential (primary) hypertension: Code(s): I10 - Essential (primary) hypertension Status: Acute (2) ST elevation LA (STEMI): Code(s): I21.3 - ST elevation (STEMI) myocardial infarction of unspecified site Status: Acute Assessment and Plan: 79-year-old male with hypertension, type 2 diabetes mellitus, dyslipidemia, gout, history of stroke, ? Vascular dementia. Patient brought to the hospital with complaints of chest pain, often on which got worse towards the end of the day. EKG showed inferior ST elevation with reciprocal ST depression. Emergent coronary angiogram showed 100% thrombotic occlusion of RPL branch- infarct related vessel. 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 LV systolic function preserved. Patient underwent primary PCI/GLENYS x1 RPL branch with pentecostalism of RICARDO 3 flow. -admit to ICU -dual antiplatelet therapy with aspirin ticagrelor; high-dose statin. Avoid beta-erlinda for now due to bradycardia. -labs including CBC, CMP, lipid panel, HbA1c, serial troponins -echo with Doppler -may consider relook angiogram of LAD in the future based on clinical course -ICU physician updated
[2025-04-12 02:28] LABS: Alanine Aminotransferase 17 U/L (6-50); Albumin Level 3.8 g/dL (3.5-5.1); Alkaline Phosphatase 79 U/L (38-126); Anion Gap 7 mmol/L (4-12); Aspartate Amino Transferase 24 U/L (17-59); Bilirubin,Total 1.1 mg/dL (0.2-1.3); Blood Urea Nitrogen 22 mg/dL (9-20); Calcium 9.0 mg/dL (8.4-10.2); Carbon Dioxide 26 mmol/L (22-30); Chloride 104 mmol/L (98-107); Cholesterol 118 mg/dL (0-200); Estimated Glomerular Filt Rate 36; Glucose 141 mg/dL (65-110); HDL Direct 29 mg/dL; Potassium 3.7 mmol/L (3.4-5.0); Sodium 137 mmol/L (137-145); Total Protein 6.8 g/dL (6.3-8.2); Triglycerides 121 mg/dL (<150)
--- NOTE | 2025-04-12 02:28 | ED_ITS ---
HPI - Chest Pain General Chief Complaint: Chest Pain Stated Complaint: chest pain Time Seen by Provider: 04/12/25 01:56 History of Present Illness HPI narrative: 79-year-old male with a history of mild Alzheimer's, CKD, diabetes. Patient also has history of CVA. He presents to the emergency department with concerns for STEMI. Patient has been having some chest discomfort throughout the day and at 15 minutes ago had severe chest pain that was crushing in nature and radiating towards his left arm. No history of coronary disease, no history of stents. Does not take any blood thinners aside from baby aspirin. EMS contacted us during transport and related an EKG that appears to have an inferior STEMI. Catheterization lab was activated immediately and I relayed the EKG and spoke to the glass inspector marketing and communications officer Dr. Chaudhry. On arrival to the emergency department patient is complaining of chest pain, diaphoretic and pale appearing. Bradycardic in the 40s to 50s with severe ectopy. No hypoxia. Declines any shortness of breath, nausea, vomiting, back pain, abdominal pain or epigastric discomfort. Never had anything like this happened to him previously. Related Data Home Medications ?Medication ?Instructions ?Recorded ?Confirmed ?Last Taken ?Type acetaminophen 500 mg tablet 1,000 mg PO Q6H PRN pain 08/17/24 04/12/25 Unknown History (Tylenol Extra Strength) allopurinol 100 mg tablet 100 mg PO DAILY 08/17/24 04/12/25 04/11/25 History aspirin 81 mg chewable tablet 81 mg PO DAILY 08/17/24 04/12/25 04/11/25 History atorvastatin 20 mg tablet 20 mg PO HS 08/17/24 04/12/25 04/11/25 History donepezil 10 mg tablet 10 mg PO QHS 08/17/24 04/12/25 04/11/25 History empagliflozin 25 mg tablet 25 mg PO DAILY 08/17/24 04/12/25 04/11/25 History (Jardiance) glyburide 5 mg tablet 5 mg PO BID 08/17/24 04/12/25 04/11/25 History hydralazine 10 mg tablet 20 mg PO BID 08/17/24 04/12/25 04/11/25 History insulin glargine 100 unit/mL (3 10 unit subcut DAILY@0800 08/17/24 04/12/25 04/11/25 History mL) subcutaneous pen (Lantus Solostar U-100 Insulin) lactobacillus combination no.9 4 4,000 mmu cells PO DAILY 08/17/24 04/12/25 04/11/25 History billion cell capsule (Adult 50 Plus Probiotic) metoprolol succinate 25 mg 12.5 mg PO HS 08/17/24 04/12/25 04/11/25 History tablet,extended release 24 hr multivitamin 1 tablet PO DAILY 08/17/24 04/12/25 04/11/25 History potassium citrate 10 mEq (1,080 1,080 mg PO BID 08/17/24 04/12/25 04/11/25 History mg) tablet,extended release insulin aspart U-100 100 unit/mL 6 unit subcut TIDWM 04/12/25 04/12/25 04/11/25 History (3 mL) subcutaneous pen (Novolog FlexPen U-100 Insulin aspart) memantine 10 mg tablet 10 mg PO DAILY 04/12/25 04/12/25 04/11/25 History Allergies Allergy/AdvReac Type Severity Reaction Status Date / Time No Known Allergies Allergy Unverified 08/17/24 10:48 Review of Systems 2 Review of Systems: As reviewed above in [facility] Family History Family History (Updated 04/12/25 @ 04:24 by Liss Hill RN) Mother Colon cancer Father PAD (peripheral artery disease) Other History of blood clots Social History Social History Smoking status: Never smoker Alcohol intake: never Substance use: never Do You Feel Safe in your Home?: Yes Lack of Transportation: No Lack of Food: Never True Current Housing: I Have Housing Concerned About Future Housing: No Difficulty Paying Gas/Electric Bills: No Difficulty Paying for Meds: No Currently Unemployed: No Education: Master's Degree or Higher Difficulty w/ Childcare or Family Care: No Living arrangements: with family Gender identity (if verbalized by the patient): Male Spiritual care concerns: No Exam 2 Narrative: GENERAL: Ill-appearing, diaphoretic and pale HEAD: Normocephalic EYES: Pupils are equal reactive ENT: Nares clear, no rhinorrhea or epistaxis. Mucous membranes moist. NECK: Supple. CHEST: Clear to auscultation, mild tachypnea HEART: Bradycardic rate, regular rhythm. No murmur heard. Warm pulses, bradycardic pulses ABDOMEN: Soft, nontender, no rigidity EXTREMITIES: Normal range of motion. No edema SKIN: Warm, dry, no rash. NEURO: Moving all extremities without any focal deficits. Alert and oriented [x3.] PSYCH: [Normal mood and affect.] Course Vital Signs Vital signs: Vital Signs Pulse Rate 49 L 04/12/25 01:49 Respiratory Rate 23 H 04/12/25 01:49 Blood Pressure 167/103 H 04/12/25 01:49 Pulse Oximetry 97 04/12/25 01:49 Temperature 36.4 C 04/12/25 06:00 Pulse Rate 60 04/12/25 06:00 Respiratory Rate 19 04/12/25 06:00 Blood Pressure 134/73 04/12/25 06:00 Pulse Oximetry 100 04/12/25 06:00 Oxygen Delivery Room Air 04/12/25 04:00 MDM - Chest Pain MDM Narrative Medical decision making narrative: 79-year-old male with a history of mild Alzheimer's, CKD, diabetes. Patient also has history of CVA. He presents to the emergency department with concerns for STEMI. Patient has been having some chest discomfort throughout the day and at 15 minutes ago had severe chest pain that was crushing in nature and radiating towards his left arm. No history of coronary disease, no history of stents. Does not take any blood thinners aside from baby aspirin. EMS contacted us during transport and related an EKG that appears to have an inferior STEMI. Catheterization lab was activated immediately and I relayed the EKG and spoke to the glass inspector marketing and communications officer Dr. Chaudhry. On arrival to the emergency department patient is complaining of chest pain, diaphoretic and pale appearing. Bradycardic in the 40s to 50s with severe ectopy. No hypoxia. Declines any shortness of breath, nausea, vomiting, back pain, abdominal pain or epigastric discomfort. Never had anything like this happened to him previously. Patient was loaded with 5000 units of heparin, 180 mg of Brilinta after discussion with the glass inspector, given 324 mg of aspirin by EMS. Repeat EKG obtained that still shows inferior ST elevations in 2 3 and AVF with reciprocal depressions in V1 and V2. No previous EKGs comparison besides the 1 from EMS. Cardiology was spoken to and catheterization lab was activated. Patient provided morphine and oxygen for analgesia and comfort. Patient remains stable at this time with elevated blood pressures and persistent bradycardia in the 40s to 50s. Awaiting laborer ammunition assembly mobilization for transport upstairs and then ICU admission. I did discuss with the patient's family member including his who arrived to the emergency department regarding the plan of care and current status. Medical Records Data Attestation: I reviewed the patient's medical records. Lab Data Attestation: I reviewed the patient's lab results. 04/12/25 02:01 04/12/25 02:01 Labs: Lab Results 04/12/25 Range/Units 02:01 WBC 7.2 (4.5-10.0) K/mm3 RBC 5.19 (4.6-6.20) M/mm3 Hgb 16.1 (14.0-18.0) g/dL Hct 48.7 (42.0-52.0) % MCV 93.8 (80-100) fl MCH 31.0 (26-34) pg MCHC 33.1 (32-36) g/dl RDW 17.8 H (11.5-14.5) % Plt Count 167 (150-375) k/mm3 MPV 11.0 H (7.4-10.4) fl Immature Gran % (Auto) 0.4 (0-0.5) % Neut % (Auto) 51.2 (45.5-73.1) % Lymph % (Auto) 34.4 (18.3-44.2) % [place] % (Auto) 12.0 H (2.6-8.5) % Eos % (Auto) 1.3 (0-4.4) % Baso % (Auto) 0.7 (0.2-1.2) % Lymph # (Auto) 2.47 (0.9-3.2) K/mm3 [place] # (Auto) 0.9 H (0.1-0.6) K/mm3 Eos # (Auto) 0.1 (0-0.3) K/mm3 Baso # (Auto) 0.1 (0.0-0.1) K/mm3 Abs Immat Gran (auto) 0.03 (0.00-0.031) K/mm3 Absolute Neuts (auto) 3.7 (1.3-6.7) K/mm3 Absolute Nucleated RBC 0.000 (0.0-0.012) K/mm3 Nucleated RBC % 0.0 (0.0-0.2) % PT Pending INR Pending APTT Pending Sodium Pending Potassium Pending Chloride Pending Carbon Dioxide Pending Anion Gap Pending BUN Pending Creatinine Pending Estim Creat Clear Calc Pending Estimated GFR Pending Glucose Pending Calcium Pending Total Bilirubin Pending AST Pending ALT Pending Alkaline Phosphatase Pending Troponin I Pending Total Protein Pending Albumin Pending Triglycerides Pending Cholesterol Pending LDL Cholesterol Direct Pending HDL Direct Pending Nasal MRSA (PCR) Pending ECG Data EKG #1: Attestation: I personally reviewed and interpreted this ECG as follows: ECG completion date: 04/12/25 ECG completion time: 03:55 Prior ECG tracings: not available for review Ischemic changes: acute STEMI Interpretation: Inferior STEMI with ST segment elevations in leads 3 AVF and reciprocal depressions in leads V1 and V2. Considered right-sided RCA lesion. Sinus bradycardia with ectopy. QTC 489, TX interval 244. No previous EKG for comparison. Critical Care Time Critical Care Time Critical Care Time: Yes Total Critical Care Time: 35 Discharge Plan Discharge Clinical Impression: ST elevation CO (STEMI) Patient Disposition: Still a Patient Condition: Serious
[2025-04-12 02:38] LABS: INR 1.1; Prothrombin Time 14.1 Seconds (11.1-14.7)
[2025-04-12 02:39] LABS: Partial Thromboplastin Time 26.5 Seconds (22.3-36.8)
[2025-04-12 02:48] LABS: Troponin I 0.190 ng/mL (0.000-0.034)
[2025-04-12 03:20] LABS: MRSA (PCR) NOT DETECTED (NOT DETECTE)
--- NOTE | 2025-04-12 03:24 | P.PCNCC_ITS ---
Cardiac Cath Procedure Note Date of procedure:: 04/12/25 Performing physician:: Sameer Chaudhry MD Procedure Procedure note:: EMERGENT CARDIAC CATHETERIZATION AND PERCUTANEOUS CORONARY INTERVENTION REPORT DATE OF PROCEDURE: 04/12/2025 INDICATION FOR PROCEDURE: Acute coronary syndrome/inferior ST-elevation myocardial infarction BRIEF CLINICAL HISTORY:79-year-old male with hypertension, type 2 diabetes mellitus, CKD, dyslipidemia, gout, history of stroke, ? Vascular dementia Patient presented to [facility] Emergency Room on 04/12/2025 with complaints of chest pain. EMS EKG on my personal interpretation showed sinus bradycardia, inferior ST elevation with reciprocal ST depression. Cardiac catheterization lab was activated for primary PCI. PROCEDURES PERFORMED: 1. Emergent left heart catheterization- Selective left and right coronary angiogram; left ventriculogram and hemodynamic assessment 2. Percutaneous coronary intervention-balloon angioplasty and stenting of totally occluded RPL branch using a 2.75 x 26 mm Biotronik sirolimus eluting stent with yazidi of RICARDO 3 flow 3. Ultrasound-guided right radial artery access 4. Moderate sedation-CPT code 89415 and beyond MODERATE SEDATION: Midazolam 1 mg; fentanyl 25 mcg. Start time 0243 , Stop time 0316 ; Total [id number] time 33 minutes; Mayelin Vaughn RN was trained observer for moderate sedation. ACCESS SITE: Right radial artery PROCEDURE NOTE: Patient was emergently brought to catheterization lab and prepped and draped in a usual sterile manner. After local anesthesia with lidocaine, right radial artery access was taken with micropuncture needle under ultrasound guidance followed by insertion of a 6 [place] sheath. Selective left and right coronary angiogram was performed using 5 [place] 3.5 diagnostic catheter and JR4 guide catheters respectively. Orthogonal views were taken. After completion of PCI, 5 [place] pigtail catheter was advanced in the LV cavity and was flushed with normal saline. LV pressure measurement was performed. After this, left ventriculogram was performed. The catheter was flushed again, and gradient across the aortic valve was measured on the pullback of the catheter. After completion of procedure, radial band was applied with good hemostasis. Patient tolerated procedure well without any immediate procedure related complications. FINDINGS: LEFT MAIN CORONARY: Medium to large caliber vessel, no significant focal stenosis. LEFT ANTERIOR DESCENDING ARTERY: Lad is a medium caliber vessel with diffuse narrowing in the proximal segment which extends in the the mid-distal segment. The vessel becomes diminutive in the distal segment. Diagonal branch is a medium caliber vessel with narrowing in the proximal segment. 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 LEFT CIRCUMFLEX ARTERY: Medium caliber vessel, gives rise to tortuous medium caliber OM1 branch which gives rise to superior and inferior branches. Superior branch is smaller caliber vessel with about 80-90 % stenosis in the mid segment. RIGHT CORONARY ARTERY: Large caliber, tortuous, dominant vessel. The vessel gives rise to small to medium caliber PDA branch with mild plaque in the proximal segment; and medium caliber RPL branch. RPL branch has 100% thrombotic occlusion in the proximal segment, which is infarct-related vessel. LEFT VENTRICULOGRAM: Hyperdynamic LV systolic function, ejection fraction more than 70%. LVEDP elevated at 27 mmHg. HEMODYNAMIC ASSESSMENT: Opening pressure 125/85 mmHg, closing pressure 140/66 mmHg, LVEDP 27 mmHg; no significant gradient across aortic valve on the pullback of pigtail catheter. INTERVENTION REPORT: Patient had already received aspirin and loading dose of ticagrelor in the ER. Bivalirudin was used for procedural anticoagulation. RCA was selectively engaged using 6 [place] JR4 guide catheter. The total occluded RPL branch was crossed using 0.014 luge wire. Balloon angioplasty was performed using a 2.0 x 10 mm compliant balloon at nominal pressures. This resulted in the yazidi of the flow in the RPL branch. After this, a 2.75 x 26 Biotronik sirolimus eluting stent was deployed at nominal pressures. Postdilatation was performed using the stent balloon. Final angiogram showed good angiographic results with yazidi of RICARDO 3 flow. There was no heidy ographically visible dissection or distal embolization. After completion of PCI, left ventriculogram was performed as described above. Radial band was applied for local hemostasis after completion of the procedure. Patient was chest pain-free at the time of transfer to the ICU. CONCLUSIONS: 1. 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 2. Preserved LV systolic function, LVEF > 70%; LVEDP elevated at 27 mmHg. 3. Primary PCI-PTCA/stenting of totally occluded RPL branch using a 2.75 x 26 mm Biotronik sirolimus eluting stent. PLAN/RECOMMENDATIONS: -admit to ICU -dual antiplatelet therapy with aspirin ticagrelor; high-dose statin. Avoid beta-erlinda for now due to bradycardia. -labs including CBC, CMP, lipid panel, HbA1c, serial troponins -echo with Doppler -may consider relook angiogram of LAD in the future based on clinical course -ICU physician updated This document was completed by using [employer] Direct speech recognition software, therefore, dispatcher refinery variances may occur.
--- NOTE | 2025-04-12 03:47 | ECG_ITS ---
Test Date: 2025-04-12 03:55:43 Measurements Intervals [place] Rate: 64 P: 106 UT: 244 QRS: -79 QRSD: 136 T: 3 QT: 473 QTc: 489 Interpretive Statements sinus rhythm with occasional premature atrial contraction INFERIOR INFARCT, RECENT POSTERIOR INFARCT, RECENT ABNORMAL RHYTHM ECG No previous ECG available for comparison Electronically Signed On 04-12-2025 11:24:38 CDT by Jean Morrison M.D.
[2025-04-12] MEDS: SODIUM CHLORIDE 0.9% IV 1,000 ML 125 ML IV CONT (04:53)
--- NOTE | 2025-04-12 05:35 | ADMGEN ---
This patient, Canelo Menchaca, was admitted to Intensive Care Unit-9 at 0342. Patient/family oriented to hospital policies and general routines including ID bracelet, bed and alarms, visiting hours, pain management, procedures, bathroom and other care routines, personal items, smoking policy, room service/diet, and visiting hours. Information on how to activate the Rapid Response Team has been discussed. Patient/Family are encouraged to report perceived risks to care and to ask questions if they do not understand what they are told or what they should do.
[2025-04-12 07:12] LABS: Troponin I 31.500 ng/mL (0.000-0.034)
[2025-04-12] MEDS: PERFLUTREN LIPID MICROSPHERES 1.5 ML VIAL DILUTED TO 10 ML TOTAL VOLUME IV PUSH (08:20)
[2025-04-12 08:32] LABS: Hemoglobin A1C 7.5 % (<5.7)
[2025-04-12] MEDS: TICAGRELOR 90 MG TABLET PO ×2 (08:47→20:39)
[2025-04-12] MEDS: ASPIRIN 81 MG ENTERIC TABLET PO ×2 (08:47→20:39)
--- NOTE | 2025-04-12 08:53 | P.CONIN_ITS ---
Assessment and Plan Assessment and plan (1) ST elevation DE (STEMI): Code(s): I21.3 - ST elevation (STEMI) myocardial infarction of unspecified site Status: Acute Assessment and Plan: Inferior STEMI status post PCI and stent placement to RPL Patient also has LAD lesion which will be managed at the later time as per Cardiology Check echocardiogram ICU hall monitor Continue aspirin Brilinta and statin Hold beta-erlinda due to bradycardia Hold José or ARB until renal function has stabilized (2) Type 2 diabetes mellitus without complications: Code(s): E11.9 - Type 2 diabetes mellitus without complications Status: Acute Assessment and Plan: Resume Jardiance and glimepiride and Lantus HbA1c 7.5 Add sliding scale Will slowly add with meal insulin (3) Chronic kidney disease, stage 3b: Code(s): N18.32 - Chronic kidney disease, stage 3b Status: Acute Assessment and Plan: Patient has history of chronic kidney disease and creatinine appears to be close to baseline. Patient received contrast for cardiac catheterization He is getting cautious amount of IV fluids for renal protection Hold lisinopril at this time (4) Essential (primary) hypertension: Code(s): I10 - Essential (primary) hypertension Status: Acute Assessment and Plan: Blood pressure in controlled range. No resume blood pressure medications accordingly (5) Dementia: Code(s): F03.90 - Unspecified dementia, unspecified severity, without behavioral disturbance, psychotic disturbance, mood disturbance, and anxiety Status: Acute Assessment and Plan: Continue Namenda and Aricept Plan DVT prophylaxis -Lovenox Nutrition -diet ordered Code Status - Full Code I updated patient's at bedside answered all her questions. Total Critical Care Time - 32 minutes Due to a high probability of clinically significant, life threatening deterioration, the patient required my highest level of preparedness to intervene emergently and I personally spent this critical care time directly and personally managing the patient. This critical care time included obtaining a history; examining the patient; pulse oximetry; ordering and review of studies; arranging urgent treatment with development of a management plan; evaluation of patient's response to treatment; frequent reassessment; and discussions with other providers. It was exclusive of separately billable procedures and treating other patients and teaching time. Please see Assessment and Plan section and the rest of the note for further information on patient assessment and treatment Director Banking Consult Note Consult date: 04/12/25 Reason for consult: STEMI HPI: Canelo Menchaca is a 79 year old male with past medical history of hypertension, type 2 diabetes mellitus, CKD, dyslipidemia, gout, history of stroke, dementia presented last night to ER with chief complaint of chest pain. Patient has dementia and is a poor historian most of the history was provided by patient's was at bedside she states that yesterday morning patient has some chest pain which resolved. Then he went to bed and around 1:00 a.m. she woke up and found patient distress complaining of chest pain and inability to breathe. Patient states the pain was in the middle of the chest 9 and 10 pressure aching quality radiated to his left arm. Pain was come. Pain was associated with shortness of breath nausea but no vomiting diaphoresis. Prior to going to bed he was feeling fine. Patient denies fever,, cough, abdominal pain,, diarrhea, headache or a loss of consciousness. All other systems were reviewed and were negative Patient was brought to ER and EKG showed inferior ST segment elevation. Patient was taken to cardiac catheterization lab PCI and balloon angioplasty with stenting of occluded RPL branch. Patient now admitted to ICU and denies any complaints and states this chest pain has resolved. All other systems were reviewed and were negative Review of Systems 2 Review of Systems: All systems reviewed & are unremarkable except as noted in HPI and below (HPI) [facility] Past Medical History Medical History (Updated 04/12/25 @ 08:56 by Jean Briggs MD) Dementia Chronic kidney disease, stage 3b Type 2 diabetes mellitus without complications Hyperlipidemia, unspecified Essential (primary) hypertension Family History Family History (Updated 04/12/25 @ 04:24 by Liss Hill RN) Mother Colon cancer Father PAD (peripheral artery disease) Other History of blood clots Social History Social History Smoking status: Never smoker Alcohol intake: never Substance use: never Do You Feel Safe in your Home?: Yes Lack of Transportation: No Lack of Food: Never True Current Housing: I Have Housing Concerned About Future Housing: No Difficulty Paying Gas/Electric Bills: No Difficulty Paying for Meds: No Currently Unemployed: No Education: Master's Degree or Higher Difficulty w/ Childcare or Family Care: No Living arrangements: with family Gender identity (if verbalized by the patient): Male Spiritual care concerns: No Meds Home Medications and Allergies Home Medications ?Medication ?Instructions ?Recorded ?Confirmed ?Type acetaminophen 500 mg tablet 1,000 mg PO Q6H PRN pain 08/17/24 04/12/25 History (Tylenol Extra Strength) allopurinol 100 mg tablet 100 mg PO DAILY 08/17/24 04/12/25 History aspirin 81 mg chewable tablet 81 mg PO DAILY 08/17/24 04/12/25 History atorvastatin 20 mg tablet 20 mg PO HS 08/17/24 04/12/25 History donepezil 10 mg tablet 10 mg PO QHS 08/17/24 04/12/25 History empagliflozin 25 mg tablet 25 mg PO DAILY 08/17/24 04/12/25 History (Jardiance) glyburide 5 mg tablet 5 mg PO BID 08/17/24 04/12/25 History hydralazine 10 mg tablet 20 mg PO BID 08/17/24 04/12/25 History insulin glargine 100 unit/mL (3 10 unit subcut DAILY@0800 08/17/24 04/12/25 History mL) subcutaneous pen (Lantus Solostar U-100 Insulin) lactobacillus combination no.9 4 4,000 mmu cells PO DAILY 08/17/24 04/12/25 History billion cell capsule (Adult 50 Plus Probiotic) metoprolol succinate 25 mg 12.5 mg PO HS 08/17/24 04/12/25 History tablet,extended release 24 hr multivitamin 1 tablet PO DAILY 08/17/24 04/12/25 History potassium citrate 10 mEq (1,080 1,080 mg PO BID 08/17/24 04/12/25 History mg) tablet,extended release lisinopril 5 mg tablet 5 mg PO DAILY #30 tabs 12/15/24 04/12/25 Rx insulin aspart U-100 100 unit/mL 6 unit subcut TIDWM 04/12/25 04/12/25 History (3 mL) subcutaneous pen (Novolog FlexPen U-100 Insulin aspart) memantine 10 mg tablet 10 mg PO DAILY 04/12/25 04/12/25 History Allergies Allergy/AdvReac Type Severity Reaction Status Date / Time No Known Allergies Allergy Unverified 08/17/24 10:48 Vital Signs Vital Signs - 24 hr 04/12/25 01:49 04/12/25 01:50 04/12/25 01:50 Temperature Pulse Rate 49 L 58 L 58 L Respiratory Rate 23 H 19 18 Blood Pressure 167/103 H 167/103 H Pulse Oximetry 97 98 95 Oxygen Delivery Room Air 04/12/25 02:00 04/12/25 02:02 04/12/25 02:12 Temperature Pulse Rate 54 L 52 L 61 Respiratory Rate 28 H 27 H 20 Blood Pressure 175/85 H 170/87 H Pulse Oximetry 99 99 98 Oxygen Delivery 04/12/25 02:12 04/12/25 02:16 04/12/25 02:22 Temperature Pulse Rate 55 L 55 L 58 L Respiratory Rate 21 H 17 18 Blood Pressure 170/87 H 163/71 H Pulse Oximetry 100 99 98 Oxygen Delivery 04/12/25 03:43 04/12/25 04:00 04/12/25 04:00 Temperature 36.2 C L Pulse Rate 62 48 L Respiratory Rate 17 Blood Pressure 112/70 115/70 Pulse Oximetry 95 97 Oxygen Delivery Room Air 04/12/25 04:00 04/12/25 04:15 04/12/25 04:30 Temperature Pulse Rate 63 53 L 48 L Respiratory Rate Blood Pressure 121/72 121/71 Pulse Oximetry Oxygen Delivery 04/12/25 04:45 04/12/25 05:00 04/12/25 05:30 Temperature Pulse Rate 49 L 63 63 Respiratory Rate Blood Pressure 124/74 139/77 136/76 Pulse Oximetry Oxygen Delivery 04/12/25 06:00 04/12/25 06:00 04/12/25 07:03 Temperature 36.4 C Pulse Rate 60 60 58 L Respiratory Rate 19 Blood Pressure 134/73 125/80 Pulse Oximetry 100 Oxygen Delivery 04/12/25 08:00 Temperature 36.6 C Pulse Rate 60 Respiratory Rate 16 Blood Pressure 122/81 Pulse Oximetry 98 Oxygen Delivery Exam 2 Narrative: General: Pt is alert awake and in NAD Lungs/Chest: Trachea central Clear BS B/L, No crackles or wheezing. Cardiac: RRR. Normal S1 S2. No murmurs Circulation: Pedal pulses are intact and symmetrical. Abdomen: Normal bowel sounds.. Soft. NT. ND. Extremities: Right hand at the catheterization site has a dressing, radial pulses palpable both hands have symmetrical color and cap refill. : Velasquez in place Neurologic: Follows commands. Moves all 4 extremities PERRL Skin: No Rash Results Labs 04/12/25 02:01 04/12/25 02:01 Labs: Short CBC 04/12/25 Range/Units 02:01 WBC 7.2 (4.5-10.0) K/mm3 Hgb 16.1 (14.0-18.0) g/dL Hct 48.7 (42.0-52.0) % Plt Count 167 (150-375) k/mm3 BMP 04/12/25 02:01 Sodium 137 Potassium 3.7 Chloride 104 Carbon Dioxide 26 BUN 22 H Creatinine 1.84 H Glucose 141 H Calcium 9.0 Cardiac Enzymes 04/12/25 04/12/25 Range/Units 02:01 05:31 Troponin I 0.190 H* 31.500 H* D (0.000-0.034) ng/mL Liver Function 04/12/25 Range/Units 02:01 Total Bilirubin 1.1 (0.2-1.3) mg/dL AST 24 (17-59) U/L ALT 17 (6-50) U/L Alkaline Phosphatase 79 (38-126) U/L Albumin 3.8 (3.5-5.1) g/dL Quality VTE Prophylaxis VTE prophylaxis: pharmacologic ordered Hospitalist MIPS Advance Care Plan I have confirmed that the patient's Advanced Care Plan is present, code status is documented, or surrogate decision maker is listed in patient medical record.: Yes Medication Reconciliation I have utilized all available resources to obtain, update and review the patients current medications (includes all prescriptions, OTC, herbals, cannabis, and nutritional supplements).: Yes
[2025-04-12] MEDS: EMPAGLIFLOZIN 25 MG TABLET PO (10:17)
[2025-04-12] MEDS: MEMANTINE 10 MG TABLET PO (10:17)
--- NOTE | 2025-04-12 12:05 | IVDEFINITY ---
Prior to administration of IV Definity the patient was educated on the risks and benefits of the imaging enhancing agent including potential adverse side effects. The patient verbalized understanding. Allergies were verified. No exclusion criteria were identified and at least one of the following inclusion criteria were met: 1) physician request, 2) patient technically difficult to image (per the [place] [employer]ocardi[employer] guidelines of two or more segments not discernable within the apical view), or 3) questionable left ventricular function. ?
--- NOTE | 2025-04-12 16:33 | PM.IMCN ---
Assessment and Plan Assessment and plan (1) ST elevation [place] (STEMI): Code(s): I21.3 - ST elevation (STEMI) myocardial infarction of unspecified site Status: Acute (2) Type 2 diabetes mellitus without complications: Code(s): E11.9 - Type 2 diabetes mellitus without complications Status: Acute (3) Chronic kidney disease, stage 3b: Code(s): N18.32 - Chronic kidney disease, stage 3b Status: Acute (4) Essential (primary) hypertension: Code(s): I10 - Essential (primary) hypertension Status: Acute (5) Dementia: Code(s): F03.90 - Unspecified dementia, unspecified severity, without behavioral disturbance, psychotic disturbance, mood disturbance, and anxiety Status: Acute Plan patient was taken to cardiac labor training manager emergently and had cardiac cath. which showed patient had acute coronary artery disease and patient was stented during cardiac catheterization. Patient was transferred to the ICU for observation, patient with history of diabetes, CKD, HTN and Dementia, hospitalist team was consulted for medical management. Patient was seen in the ICU room # 9, his if present. patient stats he is feeling much better compared to when he arrived, patient is started on his home medications by the rail car maintenance mechanic, will monitor and follow the patient with you, if you any questions, please feel free to call us. HPI Date of Consult Consult date: 04/12/25 Requesting Physician: Sameer Chaudhry MD Primary Care Provider: Franny Martinez, Consult Narrative Narrative: Canelo Menchaca is a 79 year old male ER-HPI narrative: 79-year-old male with a history of mild Alzheimer's, CKD, diabetes. Patient also has history of CVA. He presents to the emergency department with concerns for STEMI. Patient has been having some chest discomfort throughout the day and at 15 minutes ago had severe chest pain that was crushing in nature and radiating towards his left arm. No history of coronary disease, no history of stents. Does not take any blood thinners aside from baby aspirin. EMS contacted us during transport and related an EKG that appears to have an inferior STEMI. Catheterization lab was activated immediately and I relayed the EKG and spoke to the sports medicine coordinator final inspection supervisor Dr. Chaudhry. On arrival to the emergency department patient is complaining of chest pain, diaphoretic and pale appearing. Bradycardic in the 40s to 50s with severe ectopy. No hypoxia. Declines any shortness of breath, nausea, vomiting, back pain, abdominal pain or epigastric discomfort. Never had anything like this happened to him previously. patient was taken to cardiac labor training manager emergently and had cardiac cath. which showed patient had acute coronary artery disease and patient was stented during cardiac catheterization. Patient was transferred to the ICU for observation, patient with history of diabetes, CKD, HTN and Dementia, hospitalist team was consulted for medical management. Patient was seen in the ICU room # 9, his if present. patient stats he is feeling much better compared to when he arrived, patient is started on his home medications by the rail car maintenance mechanic, will monitor and follow the patient with you, if you any questions, please feel free to call us. [facility] Past Medical History Medical History (Updated 04/12/25 @ 08:56 by Jean Briggs MD) Dementia Chronic kidney disease, stage 3b Type 2 diabetes mellitus without complications Hyperlipidemia, unspecified Essential (primary) hypertension Family History Family History (Updated 04/12/25 @ 04:24 by Liss Hill RN) Mother Colon cancer Father PAD (peripheral artery disease) Other History of blood clots Social History Social History Smoking status: Never smoker Alcohol intake: never Substance use: never Do You Feel Safe in your Home?: Yes Lack of Transportation: No Lack of Food: Never True Current Housing: I Have Housing Concerned About Future Housing: No Difficulty Paying Gas/Electric Bills: No Difficulty Paying for Meds: No Currently Unemployed: No Education: Master's Degree or Higher Difficulty w/ Childcare or Family Care: No Living arrangements: with family Gender identity (if verbalized by the patient): Male Spiritual care concerns: No Meds Home Medications and Allergies Home Medications ?Medication ?Instructions ?Recorded ?Confirmed ?Type acetaminophen 500 mg tablet 1,000 mg PO Q6H PRN pain 08/17/24 04/12/25 History (Tylenol Extra Strength) allopurinol 100 mg tablet 100 mg PO DAILY 08/17/24 04/12/25 History aspirin 81 mg chewable tablet 81 mg PO DAILY 08/17/24 04/12/25 History atorvastatin 20 mg tablet 20 mg PO HS 08/17/24 04/12/25 History donepezil 10 mg tablet 10 mg PO QHS 08/17/24 04/12/25 History empagliflozin 25 mg tablet 25 mg PO DAILY 08/17/24 04/12/25 History (Jardiance) glyburide 5 mg tablet 5 mg PO BID 08/17/24 04/12/25 History hydralazine 10 mg tablet 20 mg PO BID 08/17/24 04/12/25 History insulin glargine 100 unit/mL (3 10 unit subcut DAILY@0800 08/17/24 04/12/25 History mL) subcutaneous pen (Lantus Solostar U-100 Insulin) lactobacillus combination no.9 4 4,000 mmu cells PO DAILY 08/17/24 04/12/25 History billion cell capsule (Adult 50 Plus Probiotic) metoprolol succinate 25 mg 12.5 mg PO HS 08/17/24 04/12/25 History tablet,extended release 24 hr multivitamin 1 tablet PO DAILY 08/17/24 04/12/25 History potassium citrate 10 mEq (1,080 1,080 mg PO BID 08/17/24 04/12/25 History mg) tablet,extended release lisinopril 5 mg tablet 5 mg PO DAILY #30 tabs 12/15/24 04/12/25 Rx aspirin 81 mg tablet,delayed 81 mg PO DAILY #90 tabs 04/12/25 Rx release atorvastatin 40 mg tablet 80 mg (2 x 40 mg) PO QHS #180 tabs 04/12/25 Rx insulin aspart U-100 100 unit/mL 6 unit subcut TIDWM 04/12/25 04/12/25 History (3 mL) subcutaneous pen (Novolog FlexPen U-100 Insulin aspart) memantine 10 mg tablet 10 mg PO DAILY 04/12/25 04/12/25 History ticagrelor 90 mg tablet (Brilinta) 90 mg PO Q12HR #180 tabs 04/12/25 Rx Allergies Allergy/AdvReac Type Severity Reaction Status Date / Time No Known Allergies Allergy Unverified 08/17/24 10:48 Vital Signs Vital Signs - 24 hr 04/12/25 01:49 04/12/25 01:50 04/12/25 01:50 Temperature Pulse Rate 49 L 58 L 58 L Respiratory Rate 23 H 19 18 Blood Pressure 167/103 H 167/103 H Pulse Oximetry 97 98 95 Oxygen Delivery Room Air 04/12/25 02:00 04/12/25 02:02 04/12/25 02:12 Temperature Pulse Rate 54 L 52 L 61 Respiratory Rate 28 H 27 H 20 Blood Pressure 175/85 H 170/87 H Pulse Oximetry 99 99 98 Oxygen Delivery 04/12/25 02:12 04/12/25 02:16 04/12/25 02:22 Temperature Pulse Rate 55 L 55 L 58 L Respiratory Rate 21 H 17 18 Blood Pressure 170/87 H 163/71 H Pulse Oximetry 100 99 98 Oxygen Delivery 04/12/25 03:43 04/12/25 04:00 04/12/25 04:00 Temperature 36.2 C L Pulse Rate 62 48 L Respiratory Rate 17 Blood Pressure 112/70 115/70 Pulse Oximetry 95 97 Oxygen Delivery Room Air 04/12/25 04:00 04/12/25 04:15 04/12/25 04:30 Temperature Pulse Rate 63 53 L 48 L Respiratory Rate Blood Pressure 121/72 121/71 Pulse Oximetry Oxygen Delivery 04/12/25 04:45 04/12/25 05:00 04/12/25 05:30 Temperature Pulse Rate 49 L 63 63 Respiratory Rate Blood Pressure 124/74 139/77 136/76 Pulse Oximetry Oxygen Delivery 04/12/25 06:00 04/12/25 06:00 04/12/25 07:03 Temperature 36.4 C Pulse Rate 60 60 58 L Respiratory Rate 19 Blood Pressure 134/73 125/80 Pulse Oximetry 100 Oxygen Delivery 04/12/25 08:00 04/12/25 08:00 04/12/25 09:15 Temperature 36.6 C Pulse Rate 60 54 L Respiratory Rate 16 Blood Pressure 122/81 Pulse Oximetry 98 97 Oxygen Delivery Room Air 04/12/25 10:00 04/12/25 10:00 04/12/25 12:00 Temperature Pulse Rate 63 63 67 Respiratory Rate 10 L Blood Pressure 107/79 Pulse Oximetry 99 Oxygen Delivery 04/12/25 12:00 04/12/25 13:49 04/12/25 14:00 Temperature 35.6 C L 36.7 C Pulse Rate 60 61 50 L Respiratory Rate 17 16 Blood Pressure 135/80 146/76 H Pulse Oximetry Oxygen Delivery 04/12/25 16:00 04/12/25 16:00 Temperature 36.6 C Pulse Rate 49 L 50 L Respiratory Rate 17 Blood Pressure 124/86 Pulse Oximetry 97 Oxygen Delivery Exam Narrative: Patient is comfortable, NAD HEENT: eyes are clear and none icteric LUNGS:CTA HEART: RR S1S2 ABD: BS+, Soft and nontender Right arm with radial splint, and dressing. Lower extremities: no edema SKIN: nonjaundiced Neuro: grossly intact. Results Labs 04/12/25 02:01 04/12/25 02:01 Labs: Short CBC 04/12/25 Range/Units 02:01 WBC 7.2 (4.5-10.0) K/mm3 Hgb 16.1 (14.0-18.0) g/dL Hct 48.7 (42.0-52.0) % Plt Count 167 (150-375) k/mm3 BMP 04/12/25 02:01 Sodium 137 Potassium 3.7 Chloride 104 Carbon Dioxide 26 BUN 22 H Creatinine 1.84 H Glucose 141 H Calcium 9.0 Cardiac Enzymes 04/12/25 04/12/25 Range/Units 02:01 05:31 Troponin I 0.190 H* 31.500 H* D (0.000-0.034) ng/mL Liver Function 04/12/25 Range/Units 02:01 Total Bilirubin 1.1 (0.2-1.3) mg/dL AST 24 (17-59) U/L ALT 17 (6-50) U/L Alkaline Phosphatase 79 (38-126) U/L Albumin 3.8 (3.5-5.1) g/dL
[2025-04-12] MEDS: DONEPEZIL HCL 10 MG TABLET PO (20:39)
[2025-04-13] VITALS (10 sets, daily range): BP systolic 129–152; BP diastolic 69–80; PULSE 54–81; RESP 16–18; TEMP 36.4–36.9; O2SAT 94–98
[2025-04-13 04:14] LABS: Hematocrit 47.5 % (42.0-52.0); Hemoglobin 15.9 g/dL (14.0-18.0); Mean Corpuscular HGB Conc 33.5 g/dl (32-36); Mean Corpuscular Hemoglobin 31.4 pg (26-34); Mean Corpuscular Volume 93.7 fl (80-100); Platelet Count Result 157 k/mm3 (150-375); Red Blood Count 5.07 M/mm3 (4.6-6.20); White Blood Count 7.2 K/mm3 (4.5-10.0)
[2025-04-13 04:36] LABS: Alanine Aminotransferase 31 U/L (6-50); Albumin Level 3.6 g/dL (3.5-5.1); Alkaline Phosphatase 81 U/L (38-126); Anion Gap 7 mmol/L (4-12); Aspartate Amino Transferase 125 U/L (17-59); Bilirubin,Total 1.6 mg/dL (0.2-1.3); Blood Urea Nitrogen 20 mg/dL (9-20); Calcium 9.0 mg/dL (8.4-10.2); Carbon Dioxide 26 mmol/L (22-30); Chloride 105 mmol/L (98-107); Estimated CRCL calculation 33 ml/min; Estimated Glomerular Filt Rate 38; Glucose 71 mg/dL (65-110); Magnesium 2.1 mg/dL (1.6-2.3); Potassium 3.6 mmol/L (3.4-5.0); Sodium 138 mmol/L (137-145); Total Protein 6.5 g/dL (6.3-8.2)
--- NOTE | 2025-04-13 06:31 | PC.NURSE ---
Pt becoming extremely agitated this A.M. do to the bed alarm sounding when he tries to get up. Safety and policy has been explained to pt and pt has been educated multiple times throughout this shift, why the bed alarm is in on. Pt called his to inform her he is in [facility] and we are holding him against his will. This nurse spoke to pt's , who exhibited understanding of the bed alarm policy. Pt has also removed arm board from cardiac cath procedure multiple times throughout the night. Pt has become more difficult to re-direct throughout this shift. Staff has walked with pt to the bathroom multiple times, however he has been slamming the door in staff's face this morning. Pt is currently back in bed with alarm on.
[2025-04-13] MEDS: ENOXAPARIN 40 MG/0.4 ML SYRINGE SUB-Q (08:09)
[2025-04-13] MEDS: TICAGRELOR 90 MG TABLET PO (08:09)
[2025-04-13] MEDS: ASPIRIN 81 MG ENTERIC TABLET PO (08:09)
[2025-04-13] MEDS: EMPAGLIFLOZIN 25 MG TABLET PO (08:09)
[2025-04-13] MEDS: MEMANTINE 10 MG TABLET PO (08:10)
[2025-04-13] MEDS: INSULIN GLARGINE (*BKC) 100 UNITS/ML 10 UNITS SUB-Q (08:10)
--- NOTE | 2025-04-13 09:10 | P.DS_ITS ---
DS: Admitting Diagnosis Discharge Date 04/13/2025 Admitting Diagnosis STEMI DS: Summary Hospital Course Hospital Course: Patient admitted with an inferior STEMI. Underwent primary PCI of a totally occluded RPLV branch using GLENYS x 1. Cardiac catheterization also notable for possible SCAD of the LAD, which will be treated medically. Patient did well post PCI without any recurrence of chest pain. Remained hemodynamically and electrically stable. Echocardiogram with preserved LVEF. DAPT for 1 year given PCI. Status at Discharge Cognitive/behavioral status at discharge: Stable Overall status at discharge: patient is back to baseline Time Spent with Patient Time attestation: Total time spent providing and/or coordinating discharge services: Exam Const: General: comfortable and no acute distress HENMT: Mouth: Yes moist mucous membranes Eyes: General: appearance normal, both eyes and all related structures Sclera: sclerae normal Resp: Effort & Inspection: normal respiratory effort Cardio: Rate: regular rate Rhythm: regular rhythm Heart sounds: no murmurs Skin: General skin exam: normal color Psych: Mental Status: mental status grossly normal Affect: normal affect DS: Data Data Completed and Pending Labs on day of discharge: Labs from last 24 hours 04/13/25 04/13/25 04/12/25 07:22 03:43 19:54 WBC 7.2 RBC 5.07 Hgb 15.9 Hct 47.5 MCV 93.7 MCH 31.4 MCHC 33.5 RDW 17.7 H Plt Count 157 MPV 10.5 H Sodium 138 Potassium 3.6 Chloride 105 Carbon Dioxide 26 Anion Gap 7 BUN 20 Creatinine 1.74 H Estim Creat Clear Calc 33 Estimated GFR 38 L Glucose 71 POC Capillary Glucose 76 136 H Calcium 9.0 Magnesium 2.1 Total Bilirubin 1.6 H AST 125 H ALT 31 Alkaline Phosphatase 81 Total Protein 6.5 Albumin 3.6 04/12/25 04/12/25 16:33 11:28 WBC RBC Hgb Hct MCV MCH MCHC RDW Plt Count MPV Sodium Potassium Chloride Carbon Dioxide Anion Gap BUN Creatinine Estim Creat Clear Calc Estimated GFR Glucose POC Capillary Glucose 127 H 189 H Calcium Magnesium Total Bilirubin AST ALT Alkaline Phosphatase Total Protein Albumin Discharge Plan Discharge Attending physician on discharge: Vandana Le Consulting providers: Mahendra Mcallister Discharging Clinician: Vandana Le Anticipated Discharge Date/Time: 04/13/25 09:10 Patient Disposition: Home Activity: may shower Diet: heart healthy Patient Instructions: Antibiotic Form, Ticagrelor (By mouth), Chest Pain (DC), Acute Coronary Syndrome (DC), Left Heart Catheterization (DC) Patient Language: Latvian Stand Alone Forms: General Discharge Information Follow-up/Referrals: Sameer Chaudhry MD [Physician] - Discharge Medications: New aspirin 81 mg Tablet,Delayed Release (Dr/Ec) 81 mg PO DAILY Qty: 90 3RF atorvastatin 40 mg Tablet 80 mg PO QHS Qty: 180 3RF ticagrelor [Brilinta] 90 mg Tablet 90 mg PO Q12HR Qty: 180 3RF metoprolol succinate [Toprol XL] 25 mg Tablet Extended Release 24 Hr 25 mg PO QAM Qty: 90 3RF Continued allopurinol 100 mg tablet 100 mg PO DAILY glyburide 5 mg tablet 5 mg PO BID insulin glargine [Lantus Solostar U-100 Insulin] 100 unit/mL (3 mL) insulin pen 10 unit subcut DAILY@0800 potassium citrate 10 mEq (1,080 mg) tablet extended release 1,080 mg PO BID donepezil 10 mg tablet 10 mg PO QHS Jardiance 25 mg tablet 25 mg PO DAILY acetaminophen [Tylenol Extra Strength] 500 mg tablet 1,000 mg PO Q6H PRN (Reason: pain) multivitamin Tablet 1 tablet PO DAILY Adult 50 Plus Probiotic 4 billion cell capsule 4,000 mmu cells PO DAILY Rx Instructions: administer with a meal memantine 10 mg tablet 10 mg PO DAILY insulin aspart U-100 [Novolog FlexPen U-100 Insulin] 100 unit/mL (3 mL) insulin pen 6 unit SUBCUT TIDWM Rx Instructions: Before Meal Discontinued atorvastatin 20 mg tablet 20 mg PO HS hydralazine 10 mg tablet 20 mg PO BID metoprolol succinate 25 mg tablet extended release 24 hr 12.5 mg PO HS aspirin 81 mg tablet,chewable 81 mg PO DAILY lisinopril 5 mg tablet 5 mg PO DAILY Qty: 30 5RF Date of admission: 04/12/25 01:53 Primary Care Provider: MichelleFranny Admitting Provider: Sameer Chaudhry Attending physician on admission: Sameer Chaudhry Condition: Stable
[2025-04-13] MEDS: METOPROLOL SUCCINATE EXT REL 25 MG TABCR PO (09:43)
--- NOTE | 2025-04-13 12:47 | PM.IMPN ---
Progress Note: A&P Assessment and Plan (1) ST elevation AK (STEMI): Code(s): I21.3 - ST elevation (STEMI) myocardial infarction of unspecified site Status: Acute (2) Type 2 diabetes mellitus without complications: Code(s): E11.9 - Type 2 diabetes mellitus without complications Status: Acute (3) Chronic kidney disease, stage 3b: Code(s): N18.32 - Chronic kidney disease, stage 3b Status: Acute (4) Essential (primary) hypertension: Code(s): I10 - Essential (primary) hypertension Status: Acute (5) Dementia: Code(s): F03.90 - Unspecified dementia, unspecified severity, without behavioral disturbance, psychotic disturbance, mood disturbance, and anxiety Status: Acute Plan patient was taken [facility] and had cardiac cath. which showed patient had acute coronary artery disease and patient was stented during cardiac catheterization. Patient was transferred to the ICU for observation, patient with history of diabetes, CKD, HTN and Dementia, hospitalist team was consulted for medical management. Patient was seen in the ICU room # 9, his if present. patient stats he is feeling much better compared to when he arrived, patient is started on his home medications by the inventory control planner, will monitor and follow the patient with you, if you any questions, please feel free to call us. Patient was transferred out of ICU to IMU, he was seen by his senior mechanical project manager. Patient clinical symptoms have improved and he has no c/o CP, patient will be discharged home today, I discussed with his we have resumed all home diabetes medications. patient will follow up with his senior mechanical project manager and primary care provider as schedule. Subjective Date/time seen: 04/13/25 12:47 Interval history: patient was taken [facility] and had cardiac cath. which showed patient had acute coronary artery disease and patient was stented during cardiac catheterization. Patient was transferred to the ICU for observation, patient with history of diabetes, CKD, HTN and Dementia, hospitalist team was consulted for medical management. Patient was seen in the ICU room # 9, his if present. patient stats he is feeling much better compared to when he arrived, patient is started on his home medications by the inventory control planner, will monitor and follow the patient with you, if you any questions, please feel free to call us. Patient was transferred out of ICU to IMU, he was seen by his senior mechanical project manager. Patient clinical symptoms have improved and he has no c/o CP, patient will be discharged home today, I discussed with his we have resumed all home diabetes medications. patient will follow up with his senior mechanical project manager and primary care provider as schedule. Review of Systems Review of Systems: All systems reviewed & are unremarkable except as noted in HPI and below (HPI) Exam Narrative: Patient is comfortable, NAD HEENT: eyes are clear and none icteric LUNGS:CTA HEART: RR S1S2 ABD: BS+, Soft and nontender Right arm with radial splint, and dressing. Lower extremities: no edema SKIN: nonjaundiced Neuro: grossly intact. Objective Data Vital Signs Vital Signs: Vital Signs - 24 hr 04/12/25 13:49 04/12/25 14:00 04/12/25 16:00 Temperature 36.7 C Pulse Rate 61 50 L 49 L Respiratory Rate 16 Blood Pressure 146/76 H Pulse Oximetry Oxygen Delivery 04/12/25 16:00 04/12/25 17:56 04/12/25 20:00 Temperature 36.6 C 37.1 C Pulse Rate 50 L 58 L 55 L Respiratory Rate 17 18 Blood Pressure 124/86 136/72 Pulse Oximetry 97 97 Oxygen Delivery 04/12/25 20:00 04/12/25 20:00 04/12/25 21:53 Temperature Pulse Rate 61 61 Respiratory Rate Blood Pressure Pulse Oximetry Oxygen Delivery Room Air 04/12/25 23:30 04/13/25 00:00 04/13/25 00:00 Temperature 36.9 C Pulse Rate 59 L 54 L Respiratory Rate 18 Blood Pressure 133/76 Pulse Oximetry 94 Oxygen Delivery Room Air 04/13/25 02:00 04/13/25 03:33 04/13/25 04:00 Temperature Pulse Rate 64 60 Respiratory Rate Blood Pressure Pulse Oximetry Oxygen Delivery Room Air 04/13/25 04:00 04/13/25 06:00 04/13/25 07:33 Temperature 36.9 C 36.4 C Pulse Rate 58 L 67 76 Respiratory Rate 18 18 Blood Pressure 142/73 H 152/69 H Pulse Oximetry 97 97 Oxygen Delivery 04/13/25 08:00 04/13/25 08:00 04/13/25 09:43 Temperature Pulse Rate 81 78 Respiratory Rate Blood Pressure Pulse Oximetry Oxygen Delivery Room Air 04/13/25 10:00 04/13/25 11:40 04/13/25 12:00 Temperature 36.6 C Pulse Rate 67 57 L Respiratory Rate 16 Blood Pressure 129/80 Pulse Oximetry 98 Oxygen Delivery Room Air Intake/Output Intake/Output: Intake & Output 04/10/25 04/11/25 04/12/25 04/13/25 23:59 23:59 23:59 23:59 Intake Total 780 205 Output Total 1400 300 Balance -620 -95 Meds/Results Medications: Active Medications Generic Name Dose Route Start Last Admin Trade Name Freq PRN Reason Stop Dose Admin Acetaminophen 1,000 mg 04/12/25 08:57 Acetaminophen 500 Mg Tablet PO Q6H PRN pain Allopurinol 100 mg 04/12/25 09:00 04/13/25 08:10 Allopurinol 100 Mg Tablet PO 100 mg DAILY RIC Administration Aspirin 81 mg 04/12/25 09:00 04/13/25 08:09 Aspirin 81 Mg Enteric Tablet PO 81 mg Q12HR RIC Administration Atorvastatin Calcium 80 mg 04/12/25 21:00 04/12/25 20:39 Atorvastatin 40 Mg Tablet PO 80 mg QHS RIC Administration Dextrose 12.5 gm 04/12/25 08:58 Dextrose 50% 25 Gm/50 Ml Syringe IV PUSH PRN PRN Hypoglycemia Protocol Donepezil HCl 10 mg 04/12/25 21:00 04/12/25 20:39 Donepezil Hcl 10 Mg Tablet PO 10 mg QHS RIC Administration Empagliflozin 25 mg 04/12/25 09:00 04/13/25 08:09 Empagliflozin 25 Mg Tablet PO 25 mg DAILY RIC Administration Enoxaparin Sodium 40 mg 04/13/25 09:00 04/13/25 08:09 Enoxaparin 40 Mg/0.4 Ml Syringe SUB-Q 40 mg DAILY RIC Administration Glucagon 1 mg 04/12/25 08:58 Glucagon For Inj 1 Mg Vial IM PRN PRN Hypoglycemia Protocol Glucose 15 gm 04/12/25 08:58 Glucose Oral Gel 15 Gm Of Glucse In 37.5 Gm Tube PO PRN PRN Hypoglycemia Protocol Glyburide 5 mg 04/12/25 09:45 04/13/25 09:43 Glyburide 5 Mg Tablet PO 5 mg BIDWM RIC Administration Dextrose 1,000 mls @ 100 mls/hr 04/12/25 08:58 Dextrose 5% 1,000 Ml IVPB PRN PRN Hypoglycemia Protocol Insulin Aspart 2 - 5 units 04/12/25 12:00 04/13/25 11:45 Insulin Aspart (*Bkc) 100 Units/Ml SUB-Q Not Given TIDWM [facility] Protocol Insulin Aspart 1 - 2 units 04/12/25 21:00 04/12/25 20:40 Insulin Aspart (*Bkc) 100 Units/Ml SUB-Q Not Given HS [facility] Protocol Insulin Glargine 10 units 04/13/25 08:00 04/13/25 08:10 Insulin Glargine (*Bkc) 100 Units/Ml SUB-Q 10 units DAILY@0800 [facility] Administration Memantine 10 mg 04/12/25 09:00 04/13/25 08:10 Memantine 10 Mg Tablet PO 10 mg DAILY RIC Administration Metoprolol Succinate 25 mg 04/13/25 09:10 04/13/25 09:43 Metoprolol Succinate Ext Rel 25 Mg Tabcr PO 25 mg QAM RIC Administration Ticagrelor 90 mg 04/12/25 09:00 04/13/25 08:09 Ticagrelor 90 Mg Tablet PO 90 mg Q12HR RIC Administration Labs Labs: Laboratory Results - last 24 hr 04/12/25 04/12/25 04/13/25 16:33 19:54 03:43 WBC 7.2 RBC 5.07 Hgb 15.9 Hct 47.5 MCV 93.7 MCH 31.4 MCHC 33.5 RDW 17.7 H Plt Count 157 MPV 10.5 H Sodium 138 Potassium 3.6 Chloride 105 Carbon Dioxide 26 Anion Gap 7 BUN 20 Creatinine 1.74 H Estim Creat Clear Calc 33 Estimated GFR 38 L Glucose 71 POC Capillary Glucose 127 H 136 H Calcium 9.0 Magnesium 2.1 Total Bilirubin 1.6 H AST 125 H ALT 31 Alkaline Phosphatase 81 Total Protein 6.5 Albumin 3.6 04/13/25 04/13/25 07:22 11:07 WBC RBC Hgb Hct MCV MCH MCHC RDW Plt Count MPV Sodium Potassium Chloride Carbon Dioxide Anion Gap BUN Creatinine Estim Creat Clear Calc Estimated GFR Glucose POC Capillary Glucose 76 159 H Calcium Magnesium Total Bilirubin AST ALT Alkaline Phosphatase Total Protein Albumin Quality VTE Prophylaxis VTE prophylaxis: pharmacologic ordered
== END 2025-04-13 14:04 | disposition home or self-care (01) | DRG 322 ==
LOC: ANHED 02:07 → ANHICU 03:29 → ANHIMU 17:01
PROVIDERS: Internal Medicine; Admitting Provider Internal Medicine Cardiovascular Disease; Emergency Provider Student in an Organized Health Care Education/Training Program; PCP Student in an Organized Health Care Education/Training Program; Visit Provider Internal Medicine
PROC: 4A023N7 Measurement of Cardiac Sampling and Pressure, Left Heart, Percutaneous Approach (ICD-10-PCS; CPT 93452; principal; 2025-04-12 02:00)
PROC: 027034Z Dilation of Coronary Artery, One Artery with Drug-eluting Intraluminal Device, Percutaneous Approach (ICD-10-PCS; CPT 92928; 2025-04-12 02:00)
DX: I21.19 ST elevation (STEMI) myocardial infarction involving other coronary artery of inferior wall (principal); I12.9 Hypertensive chronic kidney disease with stage 1 through stage 4 chronic kidney disease, or unspecified chronic kidney disease; E11.22 Type 2 diabetes mellitus with diabetic chronic kidney disease; G30.9 Alzheimer's disease, unspecified; F02.80 Dementia in other diseases classified elsewhere, unspecified severity, without behavioral disturbance, psychotic disturbance, mood disturbance, and anxiety; M10.9 Gout, unspecified; N18.32 Chronic kidney disease, stage 3b; Z86.73 Personal history of transient ischemic attack (TIA), and cerebral infarction without residual deficits; Z79.82 Long term (current) use of aspirin; Z79.84 Long term (current) use of oral hypoglycemic drugs; Z79.4 Long term (current) use of insulin
CPT/HCPCS: 36415; 80053; 80061; 82948; 83036; 83735; 84484; 85025; 85027; 85610; 85730; 86850; 86900; 86901; 87641; 93005; 93458; 99291; A9270; C1725; C1769; C1874; C1887; C1894; C8929; C9606; J0461; J0583; J1644; J1650; J1815; J2003; J2250; J2270; J2305; J3010; J7030; J7040; Q9957

== ENCOUNTER 2025-07-29 11:15 | Outpatient (RCR) | payer MEDICARE, SELFPAY | END 2025-08-12 12:45 | disposition home or self-care (01) | LOC: ANHCPREHAB 11:15 | PROVIDERS: PCP Student in an Organized Health Care Education/Training Program; Visit Provider Internal Medicine Cardiovascular Disease | DX: Z95.5 Presence of coronary angioplasty implant and graft (principal) | CPT/HCPCS: 93798 ==